=== PATIENT | female | born 1955 | race Caucasian/White ===

== ENCOUNTER 2019-05-23 03:51 | Inpatient (IN) | payer MEDICARE ==
[~2019-05-23] VITALS: Ht 162.6 cm; Wt 115.4 kg
[2019-05-23] VITALS (13 sets, daily range): BP systolic 76–169; BP diastolic 34–83
[2019-05-23 04:36] LABS: BASOPHILS % (AUTO) 0.7 % (0-1); EOSINOPHILS % (AUTO) 0.4 % (0-6); HEMATOCRIT 30.7 % (35.0-45.0); HEMOGLOBIN 10.4 g/dl (12.0-16.0); LYMPHOCYTES # (AUTO) 1.1 X10'3 (1.1-4.8); LYMPHOCYTES % (AUTO) 18.9 % (21-51); MEAN CORPUSCULAR HEMOGLOBIN 32.5 PG (27.0-31.0); MEAN CORPUSCULAR VOLUME 95.6 FL (78-98); MONOCYTES # (AUTO) 0.3 X10'3 (0-0.9); MONOCYTES % (AUTO) 4.7 % (2-12); NEUTROPHILS # (AUTO) 4.4 X10'3 (1.8-7.7); NEUTROPHILS % (AUTO) 75.3 % (42-75); PLATELET COUNT 147 X10'3 (140-440); RED BLOOD COUNT 3.22 X10'6 (4.20-5.60); RED CELL DISTRIBUTION WIDTH 15.9 % (11.5-14.5); WHITE BLOOD COUNT 5.9 X10'3 (4.5-11.0)
[2019-05-23 04:51] LABS: ALANINE AMINOTRANSFERASE 27 U/L (12-78); ALBUMIN 2.4 G/DL (3.4-5.0); ALBUMIN/GLOBULIN RATIO 0.6 (1.1-1.5); ALKALINE PHOSPHATASE 104 IU/L (46-116); ANION GAP 11 (8-16); ASPARTATE AMINO TRANSFERASE 25 U/L (10-37); BILIRUBIN,TOTAL 0.9 MG/DL (0.1-1.0); BLOOD UREA NITROGEN 19 MG/DL (7-18); BUN/CREATININE RATIO 22.1 (6.6-38.0); CALCIUM 7.7 MG/DL (8.5-10.1); CHLORIDE 109 MMOL/L (99-107); CREATININE 0.86 MG/DL (0.40-0.90); GLUCOSE 124 MG/DL (70-104); POTASSIUM 4.8 MMOL/L (3.5-5.1); SODIUM 140 MMOL/L (135-145); TOTAL CARBON DIOXIDE 20.3 MMOL/L (24-32); TOTAL PROTEIN 6.2 G/DL (6.4-8.2); eGFR 66 ML/MIN
--- NOTE | 2019-05-23 04:55 | NUR ---
BLOOD ON PT'S UNDERPANTS NOTED AND WHEN SHE WIPED AFTER URINATING. BLOOD APPEARS TO BE COMING FROM RECTUM AND MAY HAVE CONTAMINATED UA SAMPLE. PRIMARY RN NOTIFIED.
[2019-05-23 05:01] LABS: URINE HCG NEGATIVE (NEG)
[2019-05-23 05:03] LABS: CLARITY,URINE CLEAR (Clear); COLOR,URINE YELLOW (Yellow); GLUCOSE, URINE NEGATIVE (Neg); KETONES,URINE 15 mg/dl (Neg); LEUKOCYTE ESTERASE ,URINE NEGATIVE (Neg); NITRITES, URINE NEGATIVE (Neg); OCCULT BLOOD,URINE LARGE (Neg); PROTEIN,URINE NEGATIVE (Neg); UROBILINOGEN,URINE 0.2 E.U/dL (0.2-1.0)
[2019-05-23 05:23] LABS: UA COLLECTION TYPE VOIDED
[2019-05-23] MEDS ORDERED: magnesium hydroxide 30ml (MOM) UD suspension PO PRN (05:30)
[2019-05-23] MEDS ORDERED: dextrose 5%-1/2 normal saline 1,000 ML IV SCH (05:30)
[2019-05-23] MEDS ORDERED: morphine 2 MG/ML inj. syringe IV PRN ×2 (05:30)
[2019-05-23] MEDS ORDERED: mag hydrox/Alum hydrox/simeth 30ml oral suspension PO PRN (05:30)
[2019-05-23] MEDS ORDERED: acetaminophen 325mg tablet PO PRN ×2 (05:30)
[2019-05-23 05:38] LABS: RBC,URINE 0-2 /HPF (0-2); WBC,URINE 0-4 /HPF (0-4)
[2019-05-23 05:39] LABS: BACTERIA,URINE FEW /HPF (Neg); MUCUS STRANDS NONE SEEN /LPF (Neg); SQUAMOUS EPITHELIAL CELL,UR FEW /LPF (FEW)
[2019-05-23] MEDS ORDERED: OMEP-50 PO (07:08)
[2019-05-23] MEDS ORDERED: LISI40TA4 PO (07:08)
[2019-05-23] MEDS: octreotide inj. 1,250 MCG in normal saline 250ml IV soln 243.75 ML IV SCH (07:35)
[2019-05-23] MEDS ORDERED: epiNEPHrine 0.1mg/ml 10ml syringe ONE (08:00)
[2019-05-23] MEDS ORDERED: calcium chloride 100 MG/1 ML inj IV ONE (08:00)
[2019-05-23] MEDS ORDERED: NORepinephrine bitartrate 8 MG in NS 250 ML BAG (32 mcg/ml) IV ONE (08:00)
[2019-05-23] MEDS ORDERED: sod chloride 0.9% 10ml flush syringe IV ONE (08:00)
--- NOTE | 2019-05-23 08:06 | NUR ---
FIRST CALL TO PCU TO GIVE REPORT, NURSE IS BUSY, HE WILL CALL ME BACK IN 5"
--- NOTE | 2019-05-23 08:15 | NUR ---
Patient in room PCU 3012. I have received report from Feliciano PEDERSON and had the opportunity to ask questions and assume patient care.
--- NOTE | 2019-05-23 08:43 | NUR ---
Pt. arrived from ER. Pt. is complaining of nausea. Pt. helped to bathroom. Pt. placed on tele. Pt's left sided PIV is working and medication running.
[2019-05-23] MEDS: ondansetron/PF 4mg/2ml inj IV PRN ×2 (08:54→17:24)
[2019-05-23 12:54] LABS: BASOPHILS # (AUTO) 0.1 X10'3 (0-0.2); BASOPHILS % (AUTO) 0.6 % (0-1); EOSINOPHILS % (AUTO) 0.2 % (0-6); HEMATOCRIT 28.4 % (35.0-45.0); HEMOGLOBIN 9.6 g/dl (12.0-16.0); LYMPHOCYTES # (AUTO) 6.3 X10'3 (1.1-4.8); LYMPHOCYTES % (AUTO) 45.4 % (21-51); MEAN CORPUSCULAR HEMOGLOBIN 32.6 PG (27.0-31.0); MEAN CORPUSCULAR HGB CONC 33.7 g/dL (33.0-36.5); MEAN CORPUSCULAR VOLUME 96.7 FL (78-98); MEAN PLATELET VOLUME 8.2 FL (7.4-10.4); MONOCYTES # (AUTO) 0.7 X10'3 (0-0.9); MONOCYTES % (AUTO) 5.2 % (2-12); NEUTROPHILS # (AUTO) 6.7 X10'3 (1.8-7.7); NEUTROPHILS % (AUTO) 48.6 % (42-75); PLATELET COUNT 208 X10'3 (140-440); RED BLOOD COUNT 2.94 X10'6 (4.20-5.60); RED CELL DISTRIBUTION WIDTH 15.9 % (11.5-14.5); WHITE BLOOD COUNT 13.8 X10'3 (4.5-11.0)
--- NOTE | 2019-05-23 13:00 | NUR ---
The pt. pushed her call light after waking up from a nap and told me she was nauseated and asked if I could help her to the bathroom. The pt. was able to ambulate to the bathroom with no problems and helped to the toilet. I told her I would go and check to see if her antinausea medication was due. While I was gone she pulled the bathroom light and asked if I could also get her some pain medication because her abdomen was starting to hurt again. While I was pulling her medications I heard her bathroom light go off again. When I got to the bathroom she stated "I don't feel good" and was leaning forward on her IV pole. I got to her as she was leaning forward and laid her down on the floor and called for help. There was a large bloody bowl movement in the toilet as well as bloody vomit in the trash can. We called a rapid. We took vitals, krishan blood, placed the patient on a sheet and moved her out of the bathroom so we could use the Pedro lift to place her back in bed. We gave her a 1L bolus of NS and started the 2nd bag. We then transferred the pt. down to ICU per Dr. Wetzel and transferred care over to the ICU staff.
[2019-05-23 13:05] LABS: ALANINE AMINOTRANSFERASE 26 U/L (12-78); ALBUMIN 2.2 G/DL (3.4-5.0); ALBUMIN/GLOBULIN RATIO 0.6 (1.1-1.5); ALKALINE PHOSPHATASE 98 IU/L (46-116); ANION GAP 10 (8-16); ASPARTATE AMINO TRANSFERASE 24 U/L (10-37); BILIRUBIN,TOTAL 0.8 MG/DL (0.1-1.0); BLOOD UREA NITROGEN 22 MG/DL (7-18); CHLORIDE 111 MMOL/L (99-107); GLUCOSE 199 MG/DL (70-104); SODIUM 139 MMOL/L (135-145); TOTAL CARBON DIOXIDE 17.6 MMOL/L (24-32); TOTAL PROTEIN 5.8 G/DL (6.4-8.2); eGFR 50 ML/MIN
--- NOTE | 2019-05-23 13:30 | NUR ---
Patient arrived via gurney as rapid response. Reportedly vomiting bright red and diarrhea maroon blood. Patient is in and out of being appropriate answering questions. She reports she has not been taking her anti-ulcer medication the past two months because she felt she didn't need it. Blood will be transfused. EGD planned for today. Hypotensive, 500ml of Normal Saline given per Dr. Wetzel order. Dr. Wetzel at bedside for patient arrival.
[2019-05-23] MEDS ORDERED: pantoprazole 40 MG vial IV ONE ×2 (13:40→13:45)
[2019-05-23] MEDS ORDERED: ESOMEPRAZOLE 40 MG VIAL IV ONE (13:50)
[2019-05-23] MEDS ORDERED: normal saline 1000ml 1,000 ML IV ONE (13:55)
[2019-05-23] MEDS ORDERED: pantoprazole 40MG/NS 100ML BAG 100 ML IV SCH (14:00)
[2019-05-23] MEDS ORDERED: OMEP20TA23 PO (14:01)
[2019-05-23] MEDS ORDERED: fentaNYL/PF 50MCG/1 ML 2ML syringe ONE ×2 (15:45→15:47)
[2019-05-23] MEDS ORDERED: LIDOcaine Viscous 15ml cup ONE (15:46)
[2019-05-23] MEDS ORDERED: MIDAZolam 5mg/5ml vial ONE (15:46)
[2019-05-23] MEDS: NORepinephrine 8mg/ 250ml NS 250 ML IV SCH (17:56)
[2019-05-23] MEDS ORDERED: midazolam 100mg in NS 100ml 100 ML IV PRN (18:00)
[2019-05-23 18:03] LABS: BASOPHILS # (AUTO) 0.1 X10'3 (0-0.2); BASOPHILS % (AUTO) 0.5 % (0-1); EOSINOPHILS % (AUTO) 0.2 % (0-6); LYMPHOCYTES # (AUTO) 4.5 X10'3 (1.1-4.8); LYMPHOCYTES % (AUTO) 26.4 % (21-51); MEAN CORPUSCULAR HEMOGLOBIN 30.2 PG (27.0-31.0); MEAN CORPUSCULAR HGB CONC 32.5 g/dL (33.0-36.5); MEAN CORPUSCULAR VOLUME 92.8 FL (78-98); MEAN PLATELET VOLUME 7.9 FL (7.4-10.4); MONOCYTES # (AUTO) 0.9 X10'3 (0-0.9); MONOCYTES % (AUTO) 5.4 % (2-12); NEUTROPHILS # (AUTO) 11.4 X10'3 (1.8-7.7); NEUTROPHILS % (AUTO) 67.5 % (42-75); PLATELET COUNT 139 X10'3 (140-440); RED BLOOD COUNT 1.61 X10'6 (4.20-5.60); RED CELL DISTRIBUTION WIDTH 17.8 % (11.5-14.5); WHITE BLOOD COUNT 16.9 X10'3 (4.5-11.0)
[2019-05-23 18:06] LABS: HEMATOCRIT 14.9 % (35.0-45.0); HEMOGLOBIN 4.9 g/dl (12.0-16.0)
[2019-05-23] MEDS ORDERED: midazolam 2 mg/2 ml injection IV PRN (18:10)
[2019-05-23] MEDS ORDERED: heparin 1,000 UNITS/NS 500ml 500 ML ICATH ONE (18:10)
[2019-05-23] MEDS ORDERED: fentaNYL/PF 50MCG/1 ML 2ML syringe IV PRN (18:10)
[2019-05-23] MEDS ORDERED: LIDOcaine 1% 30ml preserv. free vial SQ ONE (18:10)
[2019-05-23 18:11] LABS: PARTIAL THROMBOPLASTIN TIME 49 SECONDS (22-32)
[2019-05-23 18:11] LABS: ABG BASE EXCESS -13.8 mmol/L (-2.0-3.0); ABG HCO3 13.8 mmol/L (22.0-26.0); ABG OXYGEN SATURATION 95.6 % (95-98); ABG PCO2 (T) 39.9 mmHg (35.0-45.0); ABG PH (T) 7.157 (7.350-7.450); ABG PO2 (T) 104.6 mmHg (83-108); FCOHb 0.3 % (0.5-1.5); FMetHb 0.2 % (0.3-1.12); FO2Hb 95.1 % (94-100); MINUTE VOLUME 17 L/min; PEEP 5 cm H2O; RESPIRATORY RATE 18 b/min; RESPIRATORY RATE (OBSERVED) 32 b/min; TIDAL VOLUME 450 mL; TOTAL HEMOGLOBIN 6.8 G/dl (12.0-16.0)
[2019-05-23] MEDS ORDERED: LIDOcaine 1%/PF 5ML 10 MG/ML VIAL ONE (18:19)
[2019-05-23] MEDS ORDERED: iohexol 300mg/ml 100ml inj. ONE (18:20)
[2019-05-23] MEDS ORDERED: heparin 1,000 UNITS/NS 500ml 500 ML ONE (18:31)
[2019-05-23] MEDS ORDERED: phytonadione inj. 10 MG in normal saline 100ml IV soln 99 ML IV STA (18:34)
[2019-05-23] MEDS ORDERED: desmopressin inj. 20 MCG in normal saline 100ml IV soln 95 ML IV ONE (18:35)
[2019-05-23] MEDS ORDERED: estrogens, conjugated 25mg inj IV ONE (18:35)
--- NOTE | 2019-05-23 18:44 | NUR ---
During EGD patient duodenal esophageal artery ruptured. Dr. Gates stopped procedure and consulted Dr. Wetzel via phone. Patient vomitted bright red blood in approx amount of 1 liter and stooled marroon stool in approx excess 1 liter. Patient intubated, arterial line placed to left groin. , Don contacted and updated. Angio came to retrieve patient. 5th unit of PRBC hung, sent 2 non-spiked units as well as 2FFP sent un-spiked. Patient tachycardic, 170's. Dr. Cardenas and Rashard at bedside when left patient in Angio. Report given to Harriet Paulino and Miranda Batres RN. Addendum: 05/24/19 at 1327 by Rossy Cotton RN In regards to note from 05/23/19. After conferring with coworkers, it was concluded that 3 units of PRBC's were given while in ICU and 4th PRBC unit was hung by myself while rolling patient in bed down to Angio suite on first floor. Two ices chests given and detailed instructions given to Aditya Garcia RN of [facility] and left 2 units of PRBC in one ice chest and 2 FFP in other ice chest. Due to emergent nature of situation and no access to computer, 4th unit hung while in elevator, after direction received by Dr. Wetzel is when 4th unit was hung.
[2019-05-23] MEDS ORDERED: etomidate 2mg/ml inj. IV ONE (19:10)
[2019-05-23] MEDS ORDERED: calcium chloride 100 MG/1 ML inj IV PRN (19:35)
[2019-05-23] MEDS ORDERED: vasoPRESSIN 20 units/ml inj. ONE (19:37)
--- NOTE | 2019-05-23 19:56 | NUR ---
Patient emergently brought to [facility]io for GI bleed, pt had significant drop in H&H and has been started on Levophed. Pt vitals showed significant unstablity. Pt immediately transferred to table and prepped and draped. Dr. Wetzel placed subclavian line in left chest. Multiple units of PRBCs given, [address] Leon gained left arterial access in LFA with contrast injection. Pt closely monitored during procedure with arterial line and on ventilator at 100% FIO2. Vasopressin and DDAVP started. Embolization performed with coils X3. Fluoro images obtained with successful embolization and no further mesenteric bleeding. 16 FR NG tube placed per Angio RN with copious amount of blood after suction applied. Pt brought back to CICU 2008, report given to primary RN.
[2019-05-23] MEDS: piperacillin/tazo 3.375gm/50ml 50 ML IV SCH (20:03)
[2019-05-23] MEDS ORDERED: sodium bicarbonate (8.4%) 1 mEq/ml syringe IV ONE (20:05)
[2019-05-23] MEDS: vasopressin inj. 20 UNIT in normal saline 100ml IV soln 39 ML IV SCH (20:28)
[2019-05-23 20:29] LABS: BASOPHILS # (AUTO) 0.1 X10'3 (0-0.2); BASOPHILS % (AUTO) 0.4 % (0-1); EOSINOPHILS # (AUTO) 0.1 X10'3 (0-0.9); EOSINOPHILS % (AUTO) 0.3 % (0-6); LYMPHOCYTES # (AUTO) 3.4 X10'3 (1.1-4.8); LYMPHOCYTES % (AUTO) 13.1 % (21-51); MEAN CORPUSCULAR HEMOGLOBIN 29.6 PG (27.0-31.0); MEAN CORPUSCULAR HGB CONC 32.4 g/dL (33.0-36.5); MEAN CORPUSCULAR VOLUME 91.3 FL (78-98); MEAN PLATELET VOLUME 7.9 FL (7.4-10.4); MONOCYTES # (AUTO) 1.5 X10'3 (0-0.9); MONOCYTES % (AUTO) 5.9 % (2-12); NEUTROPHILS % (AUTO) 80.3 % (42-75); PLATELET COUNT 91 X10'3 (140-440); RED BLOOD COUNT 4.38 X10'6 (4.20-5.60); RED CELL DISTRIBUTION WIDTH 16.5 % (11.5-14.5)
[2019-05-23 20:43] LABS: ALANINE AMINOTRANSFERASE 38 U/L (12-78); ALBUMIN 1.3 G/DL (3.4-5.0); ALBUMIN/GLOBULIN RATIO 0.7 (1.1-1.5); ALKALINE PHOSPHATASE 71 IU/L (46-116); AMYLASE 34 U/L (25-115); ANION GAP 14 (8-16); ASPARTATE AMINO TRANSFERASE 63 U/L (10-37); BILIRUBIN,TOTAL 0.7 MG/DL (0.1-1.0); BLOOD UREA NITROGEN 16 MG/DL (7-18); BUN/CREATININE RATIO 15.5 (6.6-38.0); CALCIUM 7.4 MG/DL (8.5-10.1); CHLORIDE 121 MMOL/L (99-107); CREATININE 1.03 MG/DL (0.40-0.90); GLUCOSE 255 MG/DL (70-104); LIPASE 189 U/L (73-393); MAGNESIUM 1.3 MG/DL (1.5-2.4); PHOSPHORUS 6.4 MG/DL (2.3-4.5); POTASSIUM 5.2 MMOL/L (3.5-5.1); SODIUM 146 MMOL/L (135-145); TOTAL PROTEIN 3.2 G/DL (6.4-8.2); TROPONIN I 0.17 NG/ML (0.0-0.05); eGFR 54 ML/MIN
[2019-05-23 20:48] LABS: TOTAL CARBON DIOXIDE 10.9 MMOL/L (24-32)
[2019-05-23 21:00] LABS: WHITE BLOOD COUNT 26.1 X10'3 (4.5-11.0)
[2019-05-23 21:03] LABS: TOTAL CELLS COUNTED 100
[2019-05-23 21:04] LABS: ANISOCYTOSIS 1+; LARGE PLATELETS FEW; PLATELET ESTIMATE DECREASED; POLYCHROMASIA FEW
[2019-05-23 21:06] LABS: PLATELET COUNT 91 X10'3 (140-440)
[2019-05-23 21:21] LABS: LACTIC SEPSIS 9.2 MMOL/L (0.4-2.0)
[2019-05-23 21:27] LABS: D-DIMER 15.72 MG/L FEU (0-0.50); PARTIAL THROMBOPLASTIN TIME 56 SECONDS (22-32)
[2019-05-23] MEDS: sodium bicarbonate (8.4%) inj. 75 MEQ in dextrose 5% water 500ml 500 ML IV SCH (22:19)
[2019-05-23] MEDS: ipratropium/albuterol 3ml nebule NEB SCH (23:10)
[2019-05-24] VITALS (32 sets, daily range): BP systolic 89–135; BP diastolic 42–67
[2019-05-24] MEDS ORDERED: midodrine tablet 2.5 MG TABLET PO SCH
--- NOTE | 2019-05-24 00:30 | NUR ---
Per pharmacy, with approval from Medardo Tapia, 05/24 0000 Zosyn dose held due to late completion of previous dose.
[2019-05-24 00:35] LABS: HEMATOCRIT 45.2 % (35.0-45.0); HEMOGLOBIN 14.7 g/dl (12.0-16.0); MEAN CORPUSCULAR HEMOGLOBIN 28.9 PG (27.0-31.0); MEAN CORPUSCULAR HGB CONC 32.6 g/dL (33.0-36.5); MEAN CORPUSCULAR VOLUME 88.7 FL (78-98); MEAN PLATELET VOLUME 7.7 FL (7.4-10.4); PLATELET COUNT 117 X10'3 (140-440); RED BLOOD COUNT 5.09 X10'6 (4.20-5.60); RED CELL DISTRIBUTION WIDTH 16.3 % (11.5-14.5)
[2019-05-24 00:38] LABS: WHITE BLOOD COUNT 37.1 X10'3 (4.5-11.0)
--- NOTE | 2019-05-24 00:45 | NUR ---
Notified ADELINA Marquez of bllod output from NG tube, received orders to still give Midodrine PO dose as ordered.
[2019-05-24 00:46] LABS: PLATELET COUNT 117 X10'3 (140-440)
[2019-05-24] MEDS: pantoprazole 40MG/NS 100ML BAG 100 ML IV SCH ×5 (01:02→20:16)
[2019-05-24 01:05] LABS: D-DIMER 24.59 MG/L FEU (0-0.50); PARTIAL THROMBOPLASTIN TIME 48 SECONDS (22-32)
[2019-05-24] MEDS: NORepinephrine 8mg/ 250ml NS 250 ML IV SCH ×2 (02:19→08:57)
[2019-05-24 03:46] LABS: BASOPHILS # (AUTO) 0.1 X10'3 (0-0.2); BASOPHILS % (AUTO) 0.3 % (0-1); EOSINOPHILS % (AUTO) 0.1 % (0-6); HEMATOCRIT 45.3 % (35.0-45.0); HEMOGLOBIN 14.7 g/dl (12.0-16.0); LYMPHOCYTES # (AUTO) 4.6 X10'3 (1.1-4.8); LYMPHOCYTES % (AUTO) 12.2 % (21-51); MEAN CORPUSCULAR HEMOGLOBIN 28.7 PG (27.0-31.0); MEAN CORPUSCULAR HGB CONC 32.5 g/dL (33.0-36.5); MEAN CORPUSCULAR VOLUME 88.3 FL (78-98); MEAN PLATELET VOLUME 7.8 FL (7.4-10.4); MONOCYTES # (AUTO) 2.4 X10'3 (0-0.9); MONOCYTES % (AUTO) 6.3 % (2-12); NEUTROPHILS # (AUTO) 30.5 X10'3 (1.8-7.7); NEUTROPHILS % (AUTO) 81.1 % (42-75); PLATELET COUNT 120 X10'3 (140-440); RED BLOOD COUNT 5.13 X10'6 (4.20-5.60); RED CELL DISTRIBUTION WIDTH 16.8 % (11.5-14.5)
[2019-05-24] MEDS: ipratropium/albuterol 3ml nebule NEB SCH ×6 (03:47→23:05)
[2019-05-24 03:51] LABS: WHITE BLOOD COUNT 37.6 X10'3 (4.5-11.0)
[2019-05-24 03:52] LABS: ALBUMIN 1.7 G/DL (3.4-5.0); ANION GAP 18 (8-16); BLOOD UREA NITROGEN 18 MG/DL (7-18); BUN/CREATININE RATIO 10.4 (6.6-38.0); CALCIUM 8.1 MG/DL (8.5-10.1); CHLORIDE 119 MMOL/L (99-107); CREATININE 1.73 MG/DL (0.40-0.90); GLUCOSE 146 MG/DL (70-104); SODIUM 146 MMOL/L (135-145); eGFR 30 ML/MIN
[2019-05-24 03:54] LABS: TOTAL CARBON DIOXIDE 8.9 MMOL/L (24-32)
[2019-05-24 03:58] LABS: PLATELET COUNT 120 X10'3 (140-440)
[2019-05-24] MEDS ORDERED: midodrine 5mg tablet PO SCH (04:06)
[2019-05-24 04:08] LABS: ANISOCYTOSIS 1+; D-DIMER 25.29 MG/L FEU (0-0.50); PARTIAL THROMBOPLASTIN TIME 51 SECONDS (22-32); TOTAL CELLS COUNTED 100
[2019-05-24 04:09] LABS: LARGE PLATELETS FEW; PLATELET ESTIMATE DECREASED
[2019-05-24 04:31] LABS: ABG BASE EXCESS -19.6 mmol/L (-2.0-3.0); ABG OXYGEN SATURATION 99.4 % (95-98); ABG PCO2 (T) 28.3 mmHg (35.0-45.0); ABG PO2 (T) 336.1 mmHg (83-108); FMetHb 0.1 % (0.3-1.12); FO2Hb 99.3 % (94-100); MINUTE VOLUME 17 L/min; PATIENT TEMPERATURE 35.4; RESPIRATORY RATE 18 b/min; RESPIRATORY RATE (OBSERVED) 33 b/min; TIDAL VOLUME 450 mL; TOTAL HEMOGLOBIN 14.4 G/dl (12.0-16.0)
[2019-05-24 04:52] LABS: ALANINE AMINOTRANSFERASE 178 U/L (12-78); ALBUMIN/GLOBULIN RATIO 0.7 (1.1-1.5); ALKALINE PHOSPHATASE 87 IU/L (46-116); ASPARTATE AMINO TRANSFERASE 328 U/L (10-37); BILIRUBIN,TOTAL 1.5 MG/DL (0.1-1.0); MAGNESIUM 1.4 MG/DL (1.5-2.4); PHOSPHORUS 5.8 MG/DL (2.3-4.5)
[2019-05-24] MEDS: sodium bicarbonate (8.4%) inj. 75 MEQ in dextrose 5% water 500ml 500 ML IV SCH (05:27)
[2019-05-24] MEDS: vasopressin inj. 20 UNIT in normal saline 100ml IV soln 39 ML IV SCH (05:27)
[2019-05-24] MEDS ORDERED: sodium chloride 0.45% 1,000 ML IV ONE (05:50)
[2019-05-24] MEDS ORDERED: phytonadione inj. 10 MG in normal saline 100ml IV soln 99 ML IV ONE ×2 (06:30→16:50)
--- NOTE | 2019-05-24 06:30 | NUR ---
Patient in room CICU 2008. I have received report from Harriet Paulino and Miranda Batres RN's and had the opportunity to ask questions and assume patient care.
[2019-05-24 06:33] LABS: ABG BASE EXCESS -18.3 mmol/L (-2.0-3.0); ABG HCO3 11.1 mmol/L (22.0-26.0); ABG OXYGEN SATURATION 99.5 % (95-98); ABG PCO2 (T) 34.9 mmHg (35.0-45.0); ABG PH (T) 7.103 (7.350-7.450); FCOHb 0.3 % (0.5-1.5); FMetHb 0.3 % (0.3-1.12); FO2Hb 98.9 % (94-100); MINUTE VOLUME 17 L/min; PATIENT TEMPERATURE 34.5; PEEP 5 cm H2O; RESPIRATORY RATE 18 b/min; RESPIRATORY RATE (OBSERVED) 32 b/min; TIDAL VOLUME 450 mL; TOTAL HEMOGLOBIN 13.9 G/dl (12.0-16.0)
[2019-05-24 06:36] LABS: ABG PO2 (T) > 600.0 mmHg (83-108)
[2019-05-24] MEDS ORDERED: albumin (human) 25% 100 ML IV solution IV ONE (06:50)
[2019-05-24] MEDS: sodium bicarbonate (8.4%) inj. 100 MEQ in dextrose 5%-water 1,000 ML IV SCH ×4 (07:15→19:37)
[2019-05-24] MEDS ORDERED: dextrose 50%-water 50ml dispensing syringe IV PRN ×2 (07:55)
[2019-05-24] MEDS ORDERED: MESSAGE TO PHARMACY PO ONE (07:55)
[2019-05-24] MEDS ORDERED: dextrose ORAL solution 15 GM/59 ML bottle PO PRN ×2 (07:55)
[2019-05-24] MEDS ORDERED: glucagon, human recombinant 1mg kit SUBCUT PRN (07:55)
[2019-05-24 08:11] LABS: HEPATITIS C ANTIBODY <0.1 s/co ratio (0.0-0.9)
[2019-05-24 08:31] LABS: CREATINE KINASE 143 U/L (26-192)
[2019-05-24 08:50] LABS: MAGNESIUM 1.2 MG/DL (1.5-2.4); PHOSPHORUS 4.1 MG/DL (2.3-4.5)
[2019-05-24 08:52] LABS: HEMOGLOBIN A1C 5.4 % (4.5-6.2)
[2019-05-24] MEDS: hydrocortisone sod succ/PF 100mg/2ml inj. IV SCH ×3 (08:52→19:36)
[2019-05-24 08:55] LABS: BASOPHILS # (AUTO) 0.1 X10'3 (0-0.2); BASOPHILS % (AUTO) 0.2 % (0-1); EOSINOPHILS % (AUTO) 0.1 % (0-6); HEMATOCRIT 40.2 % (35.0-45.0); HEMOGLOBIN 13.2 g/dl (12.0-16.0); LYMPHOCYTES # (AUTO) 4.1 X10'3 (1.1-4.8); MEAN CORPUSCULAR HEMOGLOBIN 28.8 PG (27.0-31.0); MEAN CORPUSCULAR HGB CONC 32.8 g/dL (33.0-36.5); MEAN CORPUSCULAR VOLUME 87.6 FL (78-98); MEAN PLATELET VOLUME 8.1 FL (7.4-10.4); MONOCYTES % (AUTO) 8.1 % (2-12); NEUTROPHILS % (AUTO) 80.6 % (42-75); PLATELET COUNT 97 X10'3 (140-440); RED BLOOD COUNT 4.58 X10'6 (4.20-5.60); RED CELL DISTRIBUTION WIDTH 16.9 % (11.5-14.5)
[2019-05-24] MEDS: piperacillin/tazo 3.375gm/50ml 50 ML IV SCH ×3 (08:57→19:36)
[2019-05-24 09:00] LABS: ALANINE AMINOTRANSFERASE 268 U/L (12-78); ALBUMIN 1.4 G/DL (3.4-5.0); ALBUMIN/GLOBULIN RATIO 0.7 (1.1-1.5); ALKALINE PHOSPHATASE 73 IU/L (46-116); ANION GAP 13 (8-16); ASPARTATE AMINO TRANSFERASE 545 U/L (10-37); BILIRUBIN,TOTAL 1.5 MG/DL (0.1-1.0); BLOOD UREA NITROGEN 17 MG/DL (7-18); BUN/CREATININE RATIO 8.9 (6.6-38.0); CALCIUM 7.1 MG/DL (8.5-10.1); CHLORIDE 112 MMOL/L (99-107); GLUCOSE 412 MG/DL (70-104); POTASSIUM 4.2 MMOL/L (3.5-5.1); SODIUM 146 MMOL/L (135-145); TOTAL CARBON DIOXIDE 21.2 MMOL/L (24-32); TOTAL PROTEIN 3.3 G/DL (6.4-8.2); eGFR 27 ML/MIN
[2019-05-24 09:04] LABS: WHITE BLOOD COUNT 37.2 X10'3 (4.5-11.0)
[2019-05-24 09:21] LABS: OXYGEN SATURATION (MIXED VEN) 79.5 % (60-80); PO2 MIXED VENOUS (TEMP COR) 41.4 mmHg (35-46)
--- NOTE | 2019-05-24 09:30 | NUR ---
Updated Dr. Wetzel and multidisciplinary team during Critical Care Rounds. Dr. Wetzel made aware that Radiologist, Dr. Dominique called and said that ET tube "was a little on low side". Dr. Wetzel said to leave ETT where it is. He does not want tube feeding started at this time. He is thinking about possible CVVH in future. He requests a urine to be sent for spot creatinine and sodium. Up to date on patient situation.
[2019-05-24] MEDS: insulin Lispro (HumaLOG) vial - multi-dose SQ SCH ×3 (09:46→20:15)
--- NOTE | 2019-05-24 10:30 | NUR ---
Dr. Trejo office called said that Dr. Trejo will be by some time today to evaluate patient.
--- NOTE | 2019-05-24 11:30 | NUR ---
Updated patient's son in law, Gustavo, educated on the need to have one person to inform the rest of the family. Also discussed the need for power of estate attorney paperwork that he states he has.
--- NOTE | 2019-05-24 11:31 | NUR ---
Brother of patient, Jas informed to reach out to son in law, Gustavo.
--- NOTE | 2019-05-24 11:49 | NUR ---
Updated, stated , Don. THen educated regarding one spokesperson to receive information and funnel to rest of family.
--- NOTE | 2019-05-24 12:16 | NUR ---
Mehul trigger: Pt Mehul 11 w/ skin intact. Pt intubated s/p rapid response found to have large GIB receiving 9 units of blood per MD; lost lots of clotting factors along w/ ALB since essentially total blood transfusion yesterday per MD. S/p mesenteric angiogram w/ embolization of gastroduodenal artery; no hematoma present per MD note. Per MD hyperchloremic acidosis DX in addition to potential for ischemic bowel pending GI surgeon consult. To remain NPO at this time and potential for TF tomorrow if GI clears per MD at rounds. Pt CT shows moderate fluid in peritoneum, possible ascending and proximal transverse colon colitis, enlarged spleen, and cirrhotic liver per MD at rounds. Pt has no hx etoh or liver disease. GLU 412 started on insulin drip w/ no hx DM on steroids. Will monitor for GI results; EN recs below pending MD approval. Rec: 1. IF NGTF; Vital High Protein at 85ml/hr goal; to provide 2040ml fluid, 1714ml free water, 2040kcals, and 179g protein. Initiate at 20ml/hr and advance 20ml Q8 to goal as tolerated. 2. IF TF; water flush 200ml Q6 3. IF TF; prealbumin Q /, daily wts 4. monitor for GI results to determine optimal nutrition support route Addendum: 05/24/19 at [address] Amended: Links added.
[2019-05-24 12:18] LABS: D-DIMER 9.63 MG/L FEU (0-0.50); PARTIAL THROMBOPLASTIN TIME 58 SECONDS (22-32); PLATELET COUNT 97 X10'3 (140-440)
[2019-05-24 12:55] LABS: HEMATOCRIT 29.3 % (35.0-45.0); MEAN CORPUSCULAR HEMOGLOBIN 29.5 PG (27.0-31.0); MEAN CORPUSCULAR HGB CONC 34.1 g/dL (33.0-36.5); MEAN CORPUSCULAR VOLUME 86.5 FL (78-98); MEAN PLATELET VOLUME 8.8 FL (7.4-10.4); PLATELET COUNT 58 X10'3 (140-440); RED BLOOD COUNT 3.39 X10'6 (4.20-5.60); RED CELL DISTRIBUTION WIDTH 16.9 % (11.5-14.5)
--- NOTE | 2019-05-24 14:04 | NUR ---
Left a message on Dr. Wetzel cell phone regarding patient decrease in H/H and platelets.
--- NOTE | 2019-05-24 14:14 | NUR ---
Wound care at bedside, showed areas of concern to gluteal fissure, skin tears. Barrier spray applied and then calazime. WIll continue to monitor.
--- NOTE | 2019-05-24 14:15 | NUR ---
Updated Dr. Wetzel regarding drop in hemogram results as well as platelets. He is not concerned at this point, but keep monitoring. Changing hemogram and lactic acid levels to q6h and adding TSH and T4. Addendum: 05/24/19 at 1425 by Rossy Cotton RN Dr. Wetzel is aware of LA trending down at 7. Wants me to check with IR to see when they will be removing the left groin sheath.
[2019-05-24] MEDS ORDERED: VANCOmycin 1250MG/NS 250ml Bag 250 ML IV SCH (15:00)
[2019-05-24 15:56] LABS: TOTAL CELLS COUNTED 100
[2019-05-24 15:57] LABS: ANISOCYTOSIS 1+; BURR CELLS 1+; PLATELET ESTIMATE DECREASED
[2019-05-24 18:26] LABS: HEMATOCRIT 26.2 % (35.0-45.0); MEAN CORPUSCULAR HEMOGLOBIN 29.2 PG (27.0-31.0); MEAN CORPUSCULAR HGB CONC 34.3 g/dL (33.0-36.5); MEAN CORPUSCULAR VOLUME 85.2 FL (78-98); RED BLOOD COUNT 3.08 X10'6 (4.20-5.60); RED CELL DISTRIBUTION WIDTH 17.1 % (11.5-14.5); WHITE BLOOD COUNT 16.5 X10'3 (4.5-11.0)
--- NOTE | 2019-05-24 18:27 | NUR ---
Problems reprioritized. Patient report given, questions answered & plan of care reviewed with Miranda Batres RN.
--- NOTE | 2019-05-24 18:30 | NUR ---
Patient in room CICU 2008. I have received report from BG Blair and had the opportunity to ask questions and assume patient care.
[2019-05-24 18:59] LABS: PLATELET COUNT 38 X10'3 (140-440)
[2019-05-24] MEDS: octreotide inj. 1,250 MCG in normal saline 250ml IV soln 243.75 ML IV SCH (19:35)
[2019-05-24] MEDS: insulin glargine (Lantus) pen - multi-dose SQ SCH (20:16)
[2019-05-24 23:31] LABS: ABG BASE EXCESS 0.1 mmol/L (-2.0-3.0); ABG HCO3 24.3 mmol/L (22.0-26.0); ABG OXYGEN SATURATION 97.6 % (95-98); ABG PCO2 (T) 37.5 mmHg (35.0-45.0); ABG PH (T) 7.429 (7.350-7.450); ABG PO2 (T) 117.5 mmHg (83-108); FCOHb 0.2 % (0.5-1.5); FMetHb 0.3 % (0.3-1.12); FO2Hb 97.1 % (94-100); MINUTE VOLUME 12 L/min; PEEP 5 cm H2O; RESPIRATORY RATE 18 b/min; RESPIRATORY RATE (OBSERVED) 22 b/min; TIDAL VOLUME 450 mL; TOTAL HEMOGLOBIN 8.8 G/dl (12.0-16.0)
[2019-05-25] VITALS (27 sets, daily range): BP systolic 100–142; BP diastolic 59–73
[2019-05-25] MEDS: pantoprazole 40MG/NS 100ML BAG 100 ML IV SCH ×5 (00:22→22:02)
[2019-05-25] MEDS: sodium bicarbonate (8.4%) inj. 100 MEQ in dextrose 5%-water 1,000 ML IV SCH ×2 (00:22→04:57)
[2019-05-25 00:37] LABS: HEMATOCRIT 23.4 % (35.0-45.0); HEMOGLOBIN 8.2 g/dl (12.0-16.0); MEAN CORPUSCULAR HEMOGLOBIN 29.2 PG (27.0-31.0); MEAN CORPUSCULAR HGB CONC 34.9 g/dL (33.0-36.5); MEAN CORPUSCULAR VOLUME 83.7 FL (78-98); MEAN PLATELET VOLUME 7.8 FL (7.4-10.4); PLATELET COUNT 54 X10'3 (140-440); RED CELL DISTRIBUTION WIDTH 17.2 % (11.5-14.5); WHITE BLOOD COUNT 11.9 X10'3 (4.5-11.0)
[2019-05-25 00:41] LABS: LYMPHOCYTES % (AUTO) 8.4 % (21-51); NEUTROPHILS % (AUTO) 86.8 % (42-75)
[2019-05-25 00:42] LABS: BASOPHILS % (AUTO) 0.2 % (0-1); EOSINOPHILS % (AUTO) 0.1 % (0-6); MONOCYTES # (AUTO) 0.5 X10'3 (0-0.9); MONOCYTES % (AUTO) 4.5 % (2-12); NEUTROPHILS # (AUTO) 10.3 X10'3 (1.8-7.7)
[2019-05-25 01:10] LABS: ALBUMIN 2.2 G/DL (3.4-5.0); ALBUMIN/GLOBULIN RATIO 1.2 (1.1-1.5); ALKALINE PHOSPHATASE 118 IU/L (46-116); ANION GAP 14 (8-16); BILIRUBIN,TOTAL 1.9 MG/DL (0.1-1.0); BLOOD UREA NITROGEN 19 MG/DL (7-18); BUN/CREATININE RATIO 11.5 (6.6-38.0); CALCIUM 7.7 MG/DL (8.5-10.1); CHLORIDE 108 MMOL/L (99-107); CREATININE 1.65 MG/DL (0.40-0.90); GLUCOSE 209 MG/DL (70-104); PHOSPHORUS 2.8 MG/DL (2.3-4.5); POTASSIUM 3.2 MMOL/L (3.5-5.1); SODIUM 144 MMOL/L (135-145); TOTAL CARBON DIOXIDE 22.5 MMOL/L (24-32); VANCOMYCIN,RANDOM 10.6 UG/ML; eGFR 31 ML/MIN
[2019-05-25] MEDS: VANCOMYCIN LEVEL IV SCH (01:16)
[2019-05-25 01:27] LABS: ALANINE AMINOTRANSFERASE 2485 U/L (12-78)
[2019-05-25 01:28] LABS: ASPARTATE AMINO TRANSFERASE > 7000 U/L (10-37)
[2019-05-25] MEDS ORDERED: magnesium 2GM in 50ml NS 50 ML IV ONE (01:35)
[2019-05-25] MEDS ORDERED: potassium Cl 20mEq/100mL bag 100 ML IV ONE (01:35)
[2019-05-25 01:41] LABS: D-DIMER 11.32 MG/L FEU (0-0.50); PARTIAL THROMBOPLASTIN TIME 35 SECONDS (22-32)
[2019-05-25 01:42] LABS: PLATELET COUNT 56 X10'3 (140-440)
[2019-05-25] MEDS: vancomycin/NS 1 GM ADD-VANTAGE 250 ML IV PRN (02:08)
[2019-05-25] MEDS: hydrocortisone sod succ/PF 100mg/2ml inj. IV SCH ×4 (02:09→20:08)
[2019-05-25] MEDS: mineral oil/petrolatum ophthal oint EACHEYE SCH ×4 (02:09→20:08)
[2019-05-25] MEDS: insulin Lispro (HumaLOG) vial - multi-dose SQ SCH ×2 (02:18→08:09)
[2019-05-25] MEDS: ipratropium/albuterol 3ml nebule NEB SCH ×6 (03:13→23:17)
[2019-05-25 06:26] LABS: ALBUMIN 2.2 G/DL (3.4-5.0); ANION GAP 10 (8-16); BLOOD UREA NITROGEN 20 MG/DL (7-18); BUN/CREATININE RATIO 12.7 (6.6-38.0); CALCIUM 7.9 MG/DL (8.5-10.1); CHLORIDE 108 MMOL/L (99-107); CREATININE 1.57 MG/DL (0.40-0.90); GLUCOSE 200 MG/DL (70-104); PHOSPHORUS 2.3 MG/DL (2.3-4.5); POTASSIUM 3.3 MMOL/L (3.5-5.1); SODIUM 143 MMOL/L (135-145); TOTAL CARBON DIOXIDE 24.6 MMOL/L (24-32); eGFR 33 ML/MIN
[2019-05-25 06:33] LABS: HEMATOCRIT 26.4 % (35.0-45.0); HEMOGLOBIN 9.3 g/dl (12.0-16.0); MEAN CORPUSCULAR HEMOGLOBIN 29.6 PG (27.0-31.0); MEAN CORPUSCULAR HGB CONC 35.2 g/dL (33.0-36.5); MEAN PLATELET VOLUME 8.2 FL (7.4-10.4); PLATELET COUNT 53 X10'3 (140-440); RED BLOOD COUNT 3.15 X10'6 (4.20-5.60); RED CELL DISTRIBUTION WIDTH 16.3 % (11.5-14.5); WHITE BLOOD COUNT 12.5 X10'3 (4.5-11.0)
[2019-05-25] MEDS: piperacillin/tazo 3.375gm/50ml 50 ML IV SCH ×2 (08:06→20:08)
[2019-05-25] MEDS ORDERED: vancomycin/NS 1 GM ADD-VANTAGE 250 ML IV ONE (08:25)
--- NOTE | 2019-05-25 11:38 | NUR ---
Wound consult re: low albumin, skin breakdown, increased needs. Noted, patient has partial thickness wound to gluteal sulcus, WOC following. TF recs have been made. No consult for TF yet. Will continue to follow. Addendum: 05/25/19 at [address] Amended: Links added.
[2019-05-25] MEDS ORDERED: phytonadione inj. 10 MG in normal saline 100ml IV soln 99 ML IV ONE (12:00)
[2019-05-25] MEDS ORDERED: magnesium 2GM in 50ml NS 50 ML IV PRN (12:25)
[2019-05-25] MEDS ORDERED: potassium Cl 20 mEq SR tablet PO PRN ×2 (12:25)
[2019-05-25] MEDS ORDERED: magnesium Cl slow-release 64mg tablet PO PRN (12:25)
[2019-05-25] MEDS ORDERED: magnesium 4gm in 100ml NS 100 ML IV PRN (12:25)
[2019-05-25] MEDS: potassium Cl 20mEq/100mL bag 100 ML IV PRN ×2 (12:44→13:42)
[2019-05-25] MEDS ORDERED: acetaminophen 325mg/10.15ml oral unit dose solution NG PRN ×2 (13:07→13:08)
[2019-05-25] MEDS ORDERED: dextrose ORAL solution 15 GM/59 ML bottle NG PRN ×2 (13:08)
[2019-05-25] MEDS ORDERED: mag hydrox/Alum hydrox/simeth 30ml oral suspension NG PRN (13:12)
[2019-05-25] MEDS ORDERED: magnesium hydroxide 30ml (MOM) UD suspension NG PRN (13:13)
[2019-05-25] MEDS ORDERED: potassium Cl 20 mEq SR tablet NG PRN ×2 (13:14)
--- NOTE | 2019-05-25 14:30 | NUR ---
Restart hyperglycemic protocol on patient and place patient from a level 6 to a level 2 as tube feeding is requiring a change from Humalog to Humulin. Spoke with pharmacist Eileen who concurs with medication transition. Also, Bicarb in D5W stopped earlier.
[2019-05-25] MEDS: NORepinephrine 8mg/ 250ml NS 250 ML IV SCH (17:50)
--- NOTE | 2019-05-25 18:45 | NUR ---
Patient in room CICU 2008. I have received report from BG Gonsalez and had the opportunity to ask questions and assume patient care.
--- NOTE | 2019-05-25 18:48 | NUR ---
Problems reprioritized. Patient report given, questions answered & plan of care reviewed with Miranda PEDERSON.
[2019-05-25 19:51] LABS: HEMATOCRIT 26.9 % (35.0-45.0); HEMOGLOBIN 9.2 g/dl (12.0-16.0); MEAN CORPUSCULAR HEMOGLOBIN 29.4 PG (27.0-31.0); MEAN CORPUSCULAR HGB CONC 34.3 g/dL (33.0-36.5); MEAN CORPUSCULAR VOLUME 85.9 FL (78-98); MEAN PLATELET VOLUME 8.6 FL (7.4-10.4); PLATELET COUNT 64 X10'3 (140-440); RED BLOOD COUNT 3.13 X10'6 (4.20-5.60); RED CELL DISTRIBUTION WIDTH 16.5 % (11.5-14.5); WHITE BLOOD COUNT 17.5 X10'3 (4.5-11.0)
[2019-05-25] MEDS: insulin regular, human vial - multi-dose SQ SCH (20:13)
[2019-05-25] MEDS: insulin glargine (Lantus) pen - multi-dose SQ SCH (20:15)
[2019-05-26] VITALS (24 sets, daily range): BP systolic 100–155; BP diastolic 60–86
[2019-05-26] MEDS: hydrocortisone sod succ/PF 100mg/2ml inj. IV SCH ×4 (02:20→19:19)
[2019-05-26] MEDS: mineral oil/petrolatum ophthal oint EACHEYE SCH ×4 (02:20→19:19)
[2019-05-26] MEDS: insulin regular, human vial - multi-dose SQ SCH ×4 (02:22→20:09)
[2019-05-26 02:34] LABS: BASOPHILS % (AUTO) 0.1 % (0-1); EOSINOPHILS % (AUTO) 0 % (0-6); HEMATOCRIT 25.7 % (35.0-45.0); HEMOGLOBIN 8.7 g/dl (12.0-16.0); LYMPHOCYTES # (AUTO) 1.2 X10'3 (1.1-4.8); LYMPHOCYTES % (AUTO) 9.2 % (21-51); MEAN CORPUSCULAR HEMOGLOBIN 28.8 PG (27.0-31.0); MEAN CORPUSCULAR VOLUME 84.9 FL (78-98); MEAN PLATELET VOLUME 8.1 FL (7.4-10.4); MONOCYTES # (AUTO) 0.4 X10'3 (0-0.9); MONOCYTES % (AUTO) 3.3 % (2-12); NEUTROPHILS # (AUTO) 11.8 X10'3 (1.8-7.7); NEUTROPHILS % (AUTO) 87.4 % (42-75); PLATELET COUNT 57 X10'3 (140-440); RED BLOOD COUNT 3.02 X10'6 (4.20-5.60); RED CELL DISTRIBUTION WIDTH 16.5 % (11.5-14.5); WHITE BLOOD COUNT 13.5 X10'3 (4.5-11.0)
[2019-05-26] MEDS: VANCOMYCIN LEVEL IV SCH (03:00)
[2019-05-26] MEDS: ipratropium/albuterol 3ml nebule NEB SCH ×6 (03:01→22:32)
[2019-05-26 03:05] LABS: ALBUMIN 2.1 G/DL (3.4-5.0); ALBUMIN/GLOBULIN RATIO 1.1 (1.1-1.5); ALKALINE PHOSPHATASE 156 IU/L (46-116); ANION GAP 4 (8-16); BILIRUBIN,TOTAL 1.8 MG/DL (0.1-1.0); BLOOD UREA NITROGEN 27 MG/DL (7-18); BUN/CREATININE RATIO 18.4 (6.6-38.0); CALCIUM 7.4 MG/DL (8.5-10.1); CHLORIDE 111 MMOL/L (99-107); CREATININE 1.47 MG/DL (0.40-0.90); GLUCOSE 155 MG/DL (70-104); MAGNESIUM 2.5 MG/DL (1.5-2.4); PHOSPHORUS 3.3 MG/DL (2.3-4.5); POTASSIUM 3.9 MMOL/L (3.5-5.1); SODIUM 144 MMOL/L (135-145); TOTAL CARBON DIOXIDE 29.1 MMOL/L (24-32); VANCOMYCIN,RANDOM 9.4 UG/ML; eGFR 36 ML/MIN
[2019-05-26 03:15] LABS: ABG HCO3 29.3 mmol/L (22.0-26.0); ABG OXYGEN SATURATION 93.6 % (95-98); ABG PCO2 (T) 41.9 mmHg (35.0-45.0); ABG PH (T) 7.462 (7.350-7.450); ABG PO2 (T) 71.9 mmHg (83-108); FCOHb 0.2 % (0.5-1.5); FMetHb 0.8 % (0.3-1.12); FO2Hb 92.7 % (94-100); MINUTE VOLUME 7 L/min; PATIENT TEMPERATURE 36.8; PEEP 5 cm H2O; RESPIRATORY RATE 12 b/min; RESPIRATORY RATE (OBSERVED) 12 b/min; TIDAL VOLUME 450 mL; TOTAL HEMOGLOBIN 9.6 G/dl (12.0-16.0)
[2019-05-26] MEDS: vancomycin/NS 1 GM ADD-VANTAGE 250 ML IV PRN (03:15)
[2019-05-26] MEDS: pantoprazole 40MG/NS 100ML BAG 100 ML IV SCH ×5 (03:15→20:06)
[2019-05-26 03:27] LABS: ALANINE AMINOTRANSFERASE 2427 U/L (12-78); ASPARTATE AMINO TRANSFERASE 3522 U/L (10-37)
--- NOTE | 2019-05-26 06:20 | NUR ---
Problems reprioritized. Patient report given, questions answered & plan of care reviewed with BG Gonsalez.
[2019-05-26] MEDS: piperacillin/tazo 3.375gm/50ml 50 ML IV SCH ×2 (07:59→20:06)
[2019-05-26] MEDS ORDERED: 1/2 NS IV SCH (11:40)
[2019-05-26] MEDS ORDERED: POTASSIUM CL IV SCH (11:40)
[2019-05-26] MEDS ORDERED: phytonadione inj. 10 MG in normal saline 100ml IV soln 99 ML IV ONE (11:40)
[2019-05-26] MEDS: potassium cl 20mEq in 1/2 NS 1,000 ML IV SCH (14:07)
[2019-05-26 14:33] LABS: HEMATOCRIT 25.5 % (35.0-45.0); HEMOGLOBIN 8.8 g/dl (12.0-16.0); MEAN CORPUSCULAR HGB CONC 34.6 g/dL (33.0-36.5); MEAN CORPUSCULAR VOLUME 86.7 FL (78-98); MEAN PLATELET VOLUME 8.3 FL (7.4-10.4); PLATELET COUNT 51 X10'3 (140-440); RED BLOOD COUNT 2.94 X10'6 (4.20-5.60); RED CELL DISTRIBUTION WIDTH 16.6 % (11.5-14.5); WHITE BLOOD COUNT 14.7 X10'3 (4.5-11.0)
--- NOTE | 2019-05-26 14:51 | NUR ---
Follow up: tube feedings have been started on patient per MD order using vital high protein, discussed with bedside RN that recommendations are in RD chart note for goal and water flush. MD okay for TF to advance to goal and to provide water flushes per RD recs, discussed at rounds. Wound consult re: low albumin, skin breakdown, increased needs. Noted, patient has partial thickness wound to gluteal sulcus, WOC following. TF recs have been made. No consult for TF yet. Will continue to follow. Mehul trigger: Pt Mehul 11 w/ skin intact. Pt intubated s/p rapid response found to have large GIB receiving 9 units of blood per MD; lost lots of clotting factors along w/ ALB since essentially total blood transfusion yesterday per MD. S/p mesenteric angiogram w/ embolization of gastroduodenal artery; no hematoma present per MD note. Per MD hyperchloremic acidosis DX in addition to potential for ischemic bowel pending GI surgeon consult. To remain NPO at this time and potential for TF tomorrow if GI clears per MD at rounds. Pt CT shows moderate fluid in peritoneum, possible ascending and proximal transverse colon colitis, enlarged spleen, and cirrhotic liver per MD at rounds. Pt has no hx etoh or liver disease. GLU 412 started on insulin drip w/ no hx DM on steroids. Will monitor for GI results; EN recs below pending MD approval. Rec: 1. Continuous tube feeding per OG tube using Vital High Protein at 85ml/hr goal; to provide 2040ml fluid, 1714ml free water, 2040kcals, and 179g protein. Initiate at 20ml/hr and advance 20ml Q8 to goal as tolerated. 2. Water flush 200ml Q6 3. Prealbumin Q M/Th, daily wts Addendum: 05/26/19 at [address] Amended: Links added.
--- NOTE | 2019-05-26 16:00 | NUR ---
Patient less drowsy, but still unable to follow commands; weaning parameters performed by RT. notified that patient does not qualify for extubation yet. Will continue to monitor.
[2019-05-26] MEDS: LORazepam 2 mg/ml vial IV PRN ×3 (17:19→23:03)
--- NOTE | 2019-05-26 18:28 | NUR ---
Problems reprioritized. Patient report given, questions answered & plan of care reviewed with Tawnya PEDERSON.
--- NOTE | 2019-05-26 18:30 | NUR ---
Patient in room [facility] 2008. I have received report from Wallace PEDERSON and had the opportunity to ask questions and assume patient care. Addendum: 05/27/19 at 0535 by Tawnya Plascencia RN Charted by Jovanny PEDERSON
[2019-05-26] MEDS: lactobacillus rhamnosus 10,000 MMU CELLS/CAPSULE PO SCH (19:19)
[2019-05-26] MEDS: HYDROcodone/acetaminophen 10/325mg tab PO PRN (19:20)
--- NOTE | 2019-05-26 19:45 | NUR ---
Pt restless, lifts body off bed, pulls at restraints. Shakes head, biting down on ETT tube. Calms down slightly to voice. Addendum: 05/27/19 at 0536 by Tawnya Plascencia RN Charted by Jovanny PEDERSON
[2019-05-26] MEDS: insulin glargine (Lantus) pen - multi-dose SQ SCH (20:10)
[2019-05-26] MEDS: octreotide inj. 1,250 MCG in normal saline 250ml IV soln 243.75 ML IV SCH (22:28)
[2019-05-27] VITALS (27 sets, daily range): BP systolic 79–158; BP diastolic 46–86
[2019-05-27] MEDS: HYDROcodone/acetaminophen 10/325mg tab PO PRN ×2 (01:18→07:22)
[2019-05-27] MEDS: insulin regular, human vial - multi-dose SQ SCH ×4 (02:48→20:49)
[2019-05-27] MEDS: ipratropium/albuterol 3ml nebule NEB SCH ×6 (02:49→23:08)
[2019-05-27] MEDS: hydrocortisone sod succ/PF 100mg/2ml inj. IV SCH ×4 (02:49→20:40)
[2019-05-27] MEDS: LORazepam 2 mg/ml vial IV PRN (02:49)
[2019-05-27] MEDS: mineral oil/petrolatum ophthal oint EACHEYE SCH ×4 (02:50→20:40)
[2019-05-27] MEDS: VANCOMYCIN LEVEL IV SCH (03:00)
[2019-05-27 03:01] LABS: BASOPHILS % (AUTO) 0.2 % (0-1); EOSINOPHILS % (AUTO) 0 % (0-6); HEMATOCRIT 23.6 % (35.0-45.0); HEMOGLOBIN 8.1 g/dl (12.0-16.0); LYMPHOCYTES # (AUTO) 1.7 X10'3 (1.1-4.8); LYMPHOCYTES % (AUTO) 14.6 % (21-51); MEAN CORPUSCULAR HEMOGLOBIN 29.9 PG (27.0-31.0); MEAN CORPUSCULAR HGB CONC 34.4 g/dL (33.0-36.5); MEAN CORPUSCULAR VOLUME 87.2 FL (78-98); MEAN PLATELET VOLUME 8.8 FL (7.4-10.4); MONOCYTES # (AUTO) 0.6 X10'3 (0-0.9); MONOCYTES % (AUTO) 5.1 % (2-12); NEUTROPHILS % (AUTO) 80.1 % (42-75); RED BLOOD COUNT 2.71 X10'6 (4.20-5.60); RED CELL DISTRIBUTION WIDTH 16.6 % (11.5-14.5); WHITE BLOOD COUNT 11.3 X10'3 (4.5-11.0)
[2019-05-27 03:06] LABS: PLATELET COUNT 46 X10'3 (140-440)
[2019-05-27 03:33] LABS: ALBUMIN 1.9 G/DL (3.4-5.0); ALBUMIN/GLOBULIN RATIO 0.9 (1.1-1.5); ALKALINE PHOSPHATASE 138 IU/L (46-116); ANION GAP 4 (8-16); BILIRUBIN,TOTAL 1.6 MG/DL (0.1-1.0); BLOOD UREA NITROGEN 38 MG/DL (7-18); BUN/CREATININE RATIO 25.9 (6.6-38.0); CALCIUM 7.5 MG/DL (8.5-10.1); CHLORIDE 111 MMOL/L (99-107); CREATININE 1.47 MG/DL (0.40-0.90); GLUCOSE 175 MG/DL (70-104); MAGNESIUM 2.4 MG/DL (1.5-2.4); PHOSPHORUS 2.9 MG/DL (2.3-4.5); POTASSIUM 3.7 MMOL/L (3.5-5.1); SODIUM 143 MMOL/L (135-145); TOTAL CARBON DIOXIDE 27.8 MMOL/L (24-32); VANCOMYCIN,RANDOM 8.7 UG/ML; eGFR 36 ML/MIN
[2019-05-27] MEDS: potassium cl 20mEq in 1/2 NS 1,000 ML IV SCH ×2 (03:41→14:11)
[2019-05-27 03:42] LABS: ALANINE AMINOTRANSFERASE 1525 U/L (12-78); ASPARTATE AMINO TRANSFERASE 1311 U/L (10-37)
[2019-05-27 04:01] LABS: ABG BASE EXCESS 2.5 mmol/L (-2.0-3.0); ABG HCO3 27.3 mmol/L (22.0-26.0); ABG OXYGEN SATURATION 94.5 % (95-98); ABG PCO2 (T) 40.4 mmHg (35.0-45.0); ABG PH (T) 7.442 (7.350-7.450); ABG PO2 (T) 71.8 mmHg (83-108); FCOHb 0.3 % (0.5-1.5); FMetHb 0.2 % (0.3-1.12); MINUTE VOLUME 8 L/min; PATIENT TEMPERATURE 35.6; PEEP 5 cm H2O; RESPIRATORY RATE 12 b/min; RESPIRATORY RATE (OBSERVED) 15 b/min; TIDAL VOLUME 450 mL
--- NOTE | 2019-05-27 04:12 | NUR ---
Pt restless, resistive to care. Opens eyes spontaneously, does not follow commands. Addendum: 05/27/19 at 0536 by Tawnya Plascencia RN Charted by Jovanny PEDERSON.
[2019-05-27] MEDS: pantoprazole 40MG/NS 100ML BAG 100 ML IV SCH ×5 (04:23→23:23)
--- NOTE | 2019-05-27 06:30 | NUR ---
Problems reprioritized. Patient report given, questions answered & plan of care reviewed with Wallace PEDERSON.
[2019-05-27] MEDS ORDERED: vancomycin/NS 1 GM ADD-VANTAGE 250 ML IV ONE (07:00)
[2019-05-27] MEDS: lactobacillus rhamnosus 10,000 MMU CELLS/CAPSULE PO SCH ×2 (07:17→20:40)
[2019-05-27] MEDS: piperacillin/tazo 3.375gm/50ml 50 ML IV SCH ×2 (07:35→20:39)
--- NOTE | 2019-05-27 11:30 | NUR ---
Rectal bag placed on patient; however, patient too restless and kicked bag off; poor seal. Will continue freq maria a care.
[2019-05-27] MEDS: dexmedetomidin/NS 400mcg/100ml 100 ML IV SCH ×2 (12:03→20:12)
[2019-05-27 13:05] LABS: HEMATOCRIT 24.7 % (35.0-45.0); HEMOGLOBIN 8.3 g/dl (12.0-16.0); MEAN CORPUSCULAR HEMOGLOBIN 29.4 PG (27.0-31.0); MEAN CORPUSCULAR HGB CONC 33.5 g/dL (33.0-36.5); MEAN CORPUSCULAR VOLUME 87.6 FL (78-98); MEAN PLATELET VOLUME 8.3 FL (7.4-10.4); RED BLOOD COUNT 2.82 X10'6 (4.20-5.60); RED CELL DISTRIBUTION WIDTH 16.8 % (11.5-14.5); WHITE BLOOD COUNT 11.8 X10'3 (4.5-11.0)
[2019-05-27 13:10] LABS: PLATELET COUNT 48 X10'3 (140-440)
--- NOTE | 2019-05-27 13:24 | NUR ---
Patient SBP dropped from 130s to 78 after 8ml of Precedex administration; patient less responsive. Precedex stopped, patient supine with lower extremities elevated. Dr. Sosa at bedside and aware of situation. 500ml Normal saline bolus ordered. Will continue to monitor. Addendum: 05/27/19 at 1505 by Wallace Weeks RN Plt of 48 up from 46; Dr. Sosa notified at this time; no changes in orders
[2019-05-27] MEDS ORDERED: normal saline 500ml IV soln 500 ML IV ONE (13:30)
--- NOTE | 2019-05-27 14:26 | NUR ---
Reassessment: Pt remains intubated and sedated and tolerating TF at goal with GRV 0-180 mL. Per RN at critical care rounds pt with high stool output, documented with 7 BMs 05/26 per I&O, potentially to get a rectal bag. Shock liver improving per MD notes. Will continue to follow. Rec: 1. Continuous tube feeding per OG tube using Vital High Protein at 85ml/hr goal; to provide 2040ml fluid, 1714ml free water, 2040kcals, and 179g protein. Initiate at 20ml/hr and advance 20ml Q8 to goal as tolerated. 2. Water flush 200ml Q6 3. Prealbumin Q /, daily wts Addendum: 05/27/19 at [address] Amended: Links added.
--- NOTE | 2019-05-27 16:19 | NUR ---
Patient becoming more anxious/agitated in bed; okay to restart Precedex at 0.1mcg/kg/hr per Dr. Sosa; will continue to monitor.
--- NOTE | 2019-05-27 17:13 | NUR ---
Patient report given to Stacey PEDERSON and Lai PEDERSON; all questions answered.
--- NOTE | 2019-05-27 17:17 | NUR ---
Patient in room CICU 2008. I have received report from Wallace PEDERSON and had the opportunity to ask questions and assume patient care.
[2019-05-27 18:05] LABS: HEMATOCRIT 23.7 % (35.0-45.0); HEMOGLOBIN 8.1 g/dl (12.0-16.0); MEAN CORPUSCULAR HGB CONC 34.1 g/dL (33.0-36.5); MEAN CORPUSCULAR VOLUME 88.1 FL (78-98); MEAN PLATELET VOLUME 8.4 FL (7.4-10.4); RED CELL DISTRIBUTION WIDTH 16.7 % (11.5-14.5); WHITE BLOOD COUNT 10.1 X10'3 (4.5-11.0)
[2019-05-27 18:08] LABS: PLATELET COUNT 44 X10'3 (140-440)
--- NOTE | 2019-05-27 18:27 | NUR ---
Problems reprioritized. Patient report given, questions answered & plan of care reviewed with Emy PEDERSON.
--- NOTE | 2019-05-27 18:36 | NUR ---
Patient in room CICU 2008. I have received report from Stacey RN and BG Borrero and had the opportunity to ask questions and assume patient care.
[2019-05-27] MEDS ORDERED: hydrocortisone sod succ/PF 100mg/2ml inj. IV SCH ×2 (20:00)
[2019-05-27] MEDS: insulin glargine (Lantus) pen - multi-dose SQ SCH (20:51)
[2019-05-28] VITALS (23 sets, daily range): BP systolic 97–170; BP diastolic 48–86
[2019-05-28 02:12] LABS: HEMATOCRIT 26.5 % (35.0-45.0); HEMOGLOBIN 8.9 g/dl (12.0-16.0); MEAN CORPUSCULAR HEMOGLOBIN 29.4 PG (27.0-31.0); MEAN CORPUSCULAR HGB CONC 33.7 g/dL (33.0-36.5); MEAN CORPUSCULAR VOLUME 87.4 FL (78-98); MEAN PLATELET VOLUME 8.3 FL (7.4-10.4); PLATELET COUNT 57 X10'3 (140-440); RED BLOOD COUNT 3.03 X10'6 (4.20-5.60); RED CELL DISTRIBUTION WIDTH 16.5 % (11.5-14.5); WHITE BLOOD COUNT 22.1 X10'3 (4.5-11.0)
[2019-05-28] MEDS: hydrocortisone sod succ/PF 100mg/2ml inj. IV SCH ×4 (03:08→19:38)
[2019-05-28] MEDS: mineral oil/petrolatum ophthal oint EACHEYE SCH ×4 (03:09→19:38)
[2019-05-28] MEDS: insulin regular, human vial - multi-dose SQ SCH ×4 (03:17→19:58)
[2019-05-28] MEDS: ipratropium/albuterol 3ml nebule NEB SCH ×6 (03:30→22:22)
[2019-05-28 03:46] LABS: ABG BASE EXCESS 2.2 mmol/L (-2.0-3.0); ABG HCO3 26.2 mmol/L (22.0-26.0); ABG OXYGEN SATURATION 92.8 % (95-98); ABG PCO2 (T) 37.9 mmHg (35.0-45.0); ABG PH (T) 7.457 (7.350-7.450); ABG PO2 (T) 67.8 mmHg (83-108); FCOHb 0.3 % (0.5-1.5); FMetHb 0.3 % (0.3-1.12); FO2Hb 92.2 % (94-100); MINUTE VOLUME 8 L/min; PEEP 5 cm H2O; RESPIRATORY RATE 12 b/min; RESPIRATORY RATE (OBSERVED) 14 b/min; TIDAL VOLUME 450 mL; TOTAL HEMOGLOBIN 8.4 G/dl (12.0-16.0)
[2019-05-28] MEDS: potassium cl 20mEq in 1/2 NS 1,000 ML IV SCH ×3 (04:19→19:38)
[2019-05-28] MEDS: pantoprazole 40MG/NS 100ML BAG 100 ML IV SCH ×4 (04:30→19:39)
[2019-05-28] MEDS: dexmedetomidin/NS 400mcg/100ml 100 ML IV SCH ×2 (05:39→09:56)
[2019-05-28 06:11] LABS: BASOPHILS % (AUTO) 0.1 % (0-1); EOSINOPHILS % (AUTO) 0.1 % (0-6); HEMATOCRIT 23.4 % (35.0-45.0); LYMPHOCYTES # (AUTO) 1.5 X10'3 (1.1-4.8); LYMPHOCYTES % (AUTO) 11.9 % (21-51); MEAN CORPUSCULAR HEMOGLOBIN 30.3 PG (27.0-31.0); MEAN CORPUSCULAR HGB CONC 34.3 g/dL (33.0-36.5); MEAN CORPUSCULAR VOLUME 88.2 FL (78-98); MEAN PLATELET VOLUME 8.6 FL (7.4-10.4); MONOCYTES # (AUTO) 1.1 X10'3 (0-0.9); MONOCYTES % (AUTO) 8.7 % (2-12); NEUTROPHILS # (AUTO) 9.8 X10'3 (1.8-7.7); NEUTROPHILS % (AUTO) 79.2 % (42-75); RED BLOOD COUNT 2.65 X10'6 (4.20-5.60); RED CELL DISTRIBUTION WIDTH 16.8 % (11.5-14.5); WHITE BLOOD COUNT 12.4 X10'3 (4.5-11.0)
--- NOTE | 2019-05-28 06:25 | NUR ---
Problems reprioritized. Patient report given, questions answered & plan of care reviewed with BG Mercado.
[2019-05-28 06:26] LABS: PLATELET COUNT 45 X10'3 (140-440)
[2019-05-28 06:29] LABS: ALANINE AMINOTRANSFERASE 964 U/L (12-78); ALBUMIN 1.9 G/DL (3.4-5.0); ALBUMIN/GLOBULIN RATIO 0.8 (1.1-1.5); ALKALINE PHOSPHATASE 129 IU/L (46-116); ANION GAP 5 (8-16); ASPARTATE AMINO TRANSFERASE 458 U/L (10-37); BILIRUBIN,TOTAL 1.7 MG/DL (0.1-1.0); BLOOD UREA NITROGEN 41 MG/DL (7-18); CALCIUM 7.5 MG/DL (8.5-10.1); CHLORIDE 112 MMOL/L (99-107); CREATININE 1.14 MG/DL (0.40-0.90); GLUCOSE 121 MG/DL (70-104); MAGNESIUM 2.3 MG/DL (1.5-2.4); PHOSPHORUS 2.5 MG/DL (2.3-4.5); POTASSIUM 3.5 MMOL/L (3.5-5.1); SODIUM 144 MMOL/L (135-145); TOTAL CARBON DIOXIDE 27.5 MMOL/L (24-32); TOTAL PROTEIN 4.2 G/DL (6.4-8.2); eGFR 48 ML/MIN
[2019-05-28 07:18] LABS: NUCLEATED RED BLOOD CELLS 2 /100WBC (0-0); TOTAL CELLS COUNTED 100
[2019-05-28 07:19] LABS: ANISOCYTOSIS 1+; PLATELET ESTIMATE DECREASED; POIKILOCYTOSIS FEW; POLYCHROMASIA FEW
[2019-05-28] MEDS: piperacillin/tazo 3.375gm/50ml 50 ML IV SCH (08:36)
[2019-05-28] MEDS: lactobacillus rhamnosus 10,000 MMU CELLS/CAPSULE PO SCH ×2 (08:37→19:38)
[2019-05-28 13:08] LABS: HEMATOCRIT 24.6 % (35.0-45.0); HEMOGLOBIN 8.4 g/dl (12.0-16.0); MEAN CORPUSCULAR HEMOGLOBIN 30.5 PG (27.0-31.0); MEAN CORPUSCULAR HGB CONC 34.3 g/dL (33.0-36.5); MEAN CORPUSCULAR VOLUME 88.8 FL (78-98); MEAN PLATELET VOLUME 8.7 FL (7.4-10.4); RED BLOOD COUNT 2.77 X10'6 (4.20-5.60); RED CELL DISTRIBUTION WIDTH 16.8 % (11.5-14.5); WHITE BLOOD COUNT 10.6 X10'3 (4.5-11.0)
[2019-05-28 13:13] LABS: PLATELET COUNT 40 X10'3 (140-440)
[2019-05-28 18:02] LABS: HEMATOCRIT 25.2 % (35.0-45.0); HEMOGLOBIN 8.4 g/dl (12.0-16.0); MEAN CORPUSCULAR HEMOGLOBIN 29.6 PG (27.0-31.0); MEAN CORPUSCULAR HGB CONC 33.5 g/dL (33.0-36.5); MEAN CORPUSCULAR VOLUME 88.3 FL (78-98); MEAN PLATELET VOLUME 8.2 FL (7.4-10.4); RED BLOOD COUNT 2.85 X10'6 (4.20-5.60); RED CELL DISTRIBUTION WIDTH 16.6 % (11.5-14.5); WHITE BLOOD COUNT 10.8 X10'3 (4.5-11.0)
[2019-05-28 18:06] LABS: PLATELET COUNT 43 X10'3 (140-440)
--- NOTE | 2019-05-28 18:30 | NUR ---
Patient in room CICU 2008. I have received report from BG Mercado and had the opportunity to ask questions and assume patient care.
[2019-05-28] MEDS: octreotide inj. 1,250 MCG in normal saline 250ml IV soln 243.75 ML IV SCH (19:39)
[2019-05-28] MEDS: insulin glargine (Lantus) pen - multi-dose SQ SCH (20:00)
[2019-05-29] VITALS (24 sets, daily range): BP systolic 102–182; BP diastolic 51–98
[2019-05-29] MEDS: piperacillin/tazo 3.375gm/50ml 50 ML IV SCH ×3 (00:17→17:01)
[2019-05-29] MEDS: dexmedetomidin/NS 400mcg/100ml 100 ML IV SCH ×4 (00:33→21:54)
[2019-05-29 00:52] LABS: HEMATOCRIT 25.6 % (35.0-45.0); HEMOGLOBIN 8.7 g/dl (12.0-16.0); MEAN CORPUSCULAR HEMOGLOBIN 30.1 PG (27.0-31.0); MEAN CORPUSCULAR VOLUME 88.5 FL (78-98); MEAN PLATELET VOLUME 8.4 FL (7.4-10.4); RED BLOOD COUNT 2.89 X10'6 (4.20-5.60); RED CELL DISTRIBUTION WIDTH 17.2 % (11.5-14.5); WHITE BLOOD COUNT 10.4 X10'3 (4.5-11.0)
[2019-05-29 00:59] LABS: PLATELET COUNT 40 X10'3 (140-440)
[2019-05-29] MEDS: pantoprazole 40MG/NS 100ML BAG 100 ML IV SCH ×5 (01:44→21:10)
[2019-05-29] MEDS: hydrocortisone sod succ/PF 100mg/2ml inj. IV SCH ×4 (01:44→19:37)
[2019-05-29] MEDS: mineral oil/petrolatum ophthal oint EACHEYE SCH ×4 (01:44→19:34)
[2019-05-29] MEDS: insulin regular, human vial - multi-dose SQ SCH (01:52)
[2019-05-29] MEDS: ipratropium/albuterol 3ml nebule NEB SCH ×6 (02:24→23:11)
[2019-05-29 04:05] LABS: ABG BASE EXCESS 1.7 mmol/L (-2.0-3.0); ABG HCO3 25.4 mmol/L (22.0-26.0); ABG OXYGEN SATURATION 92.9 % (95-98); ABG PCO2 (T) 35.1 mmHg (35.0-45.0); ABG PH (T) 7.475 (7.350-7.450); ABG PO2 (T) 63.5 mmHg (83-108); FCOHb 0.3 % (0.5-1.5); FMetHb 0.1 % (0.3-1.12); FO2Hb 92.5 % (94-100); MINUTE VOLUME 8 L/min; PATIENT TEMPERATURE 36.3; PEEP 5 cm H2O; RESPIRATORY RATE 12 b/min; RESPIRATORY RATE (OBSERVED) 14 b/min; TIDAL VOLUME 450 mL; TOTAL HEMOGLOBIN 9.7 G/dl (12.0-16.0)
--- NOTE | 2019-05-29 06:04 | NUR ---
Tube feed stopped at 0400 due to a 625 residual. Rechecked this hour and it is 375. will continue to hold at this time per protocol.
[2019-05-29 06:15] LABS: BASOPHILS % (AUTO) 0.1 % (0-1); EOSINOPHILS % (AUTO) 0 % (0-6); HEMATOCRIT 26.1 % (35.0-45.0); LYMPHOCYTES # (AUTO) 1.6 X10'3 (1.1-4.8); LYMPHOCYTES % (AUTO) 13.3 % (21-51); MEAN CORPUSCULAR HEMOGLOBIN 30.5 PG (27.0-31.0); MEAN CORPUSCULAR HGB CONC 34.3 g/dL (33.0-36.5); MEAN PLATELET VOLUME 8.9 FL (7.4-10.4); MONOCYTES # (AUTO) 1.1 X10'3 (0-0.9); MONOCYTES % (AUTO) 8.6 % (2-12); NEUTROPHILS # (AUTO) 9.5 X10'3 (1.8-7.7); RED BLOOD COUNT 2.93 X10'6 (4.20-5.60); RED CELL DISTRIBUTION WIDTH 17.1 % (11.5-14.5); WHITE BLOOD COUNT 12.2 X10'3 (4.5-11.0)
[2019-05-29 06:20] LABS: PLATELET COUNT 39 X10'3 (140-440)
--- NOTE | 2019-05-29 06:27 | NUR ---
Problems reprioritized. Patient report given, questions answered & plan of care reviewed with BG Rutledge.
[2019-05-29 06:33] LABS: ALANINE AMINOTRANSFERASE 693 U/L (12-78); ALBUMIN 1.9 G/DL (3.4-5.0); ALBUMIN/GLOBULIN RATIO 0.8 (1.1-1.5); ALKALINE PHOSPHATASE 126 IU/L (46-116); ANION GAP 3 (8-16); ASPARTATE AMINO TRANSFERASE 226 U/L (10-37); BILIRUBIN,TOTAL 1.8 MG/DL (0.1-1.0); BLOOD UREA NITROGEN 39 MG/DL (7-18); BUN/CREATININE RATIO 37.1 (6.6-38.0); CALCIUM 7.7 MG/DL (8.5-10.1); CHLORIDE 112 MMOL/L (99-107); CREATININE 1.05 MG/DL (0.40-0.90); GLUCOSE 91 MG/DL (70-104); MAGNESIUM 2.4 MG/DL (1.5-2.4); PHOSPHORUS 3.2 MG/DL (2.3-4.5); POTASSIUM 3.6 MMOL/L (3.5-5.1); SODIUM 143 MMOL/L (135-145); TOTAL CARBON DIOXIDE 27.6 MMOL/L (24-32); TOTAL PROTEIN 4.3 G/DL (6.4-8.2); eGFR 53 ML/MIN
[2019-05-29 07:08] LABS: TOTAL CELLS COUNTED 100
[2019-05-29 07:09] LABS: ANISOCYTOSIS 1+; PLATELET ESTIMATE DECREASED; POLYCHROMASIA FEW
[2019-05-29] MEDS: lactobacillus rhamnosus 10,000 MMU CELLS/CAPSULE PO SCH ×2 (07:12→19:38)
[2019-05-29] MEDS: potassium cl 20mEq in 1/2 NS 1,000 ML IV SCH ×2 (07:12→21:09)
[2019-05-29 11:26] LABS: HEMATOCRIT 27.7 % (35.0-45.0); HEMOGLOBIN 9.2 g/dl (12.0-16.0); MEAN CORPUSCULAR HEMOGLOBIN 29.4 PG (27.0-31.0); MEAN CORPUSCULAR HGB CONC 33.2 g/dL (33.0-36.5); MEAN CORPUSCULAR VOLUME 88.4 FL (78-98); MEAN PLATELET VOLUME 8.2 FL (7.4-10.4); RED BLOOD COUNT 3.14 X10'6 (4.20-5.60)
[2019-05-29 11:46] LABS: PLATELET COUNT 42 X10'3 (140-440)
[2019-05-29] MEDS: HYDROcodone/acetaminophen 10/325mg tab PO PRN ×2 (17:05→19:16)
[2019-05-29 18:41] LABS: HEMATOCRIT 28.8 % (35.0-45.0); HEMOGLOBIN 9.6 g/dl (12.0-16.0); MEAN CORPUSCULAR HEMOGLOBIN 29.8 PG (27.0-31.0); MEAN CORPUSCULAR HGB CONC 33.4 g/dL (33.0-36.5); MEAN CORPUSCULAR VOLUME 89.2 FL (78-98); RED BLOOD COUNT 3.23 X10'6 (4.20-5.60); RED CELL DISTRIBUTION WIDTH 17.1 % (11.5-14.5); WHITE BLOOD COUNT 12.8 X10'3 (4.5-11.0)
[2019-05-29 18:51] LABS: PLATELET COUNT 43 X10'3 (140-440)
[2019-05-29] MEDS: LORazepam 2 mg/ml vial IV PRN (19:02)
--- NOTE | 2019-05-29 19:30 | NUR ---
kendall video recorder mechanic on unit. I made Kendall aware of this patient critical value of platelet 43. this number is improved since last count. Also I made kendall aware of the difficulty of patient behaviour - increased agitation, restlessness, trying to tongue out ETT, hitting bed rails with wrists/ arms - I let Kendall know I was increasing precedex gtt and soon to give the PRN ativan dose I have available. We will not be extubateing this patient this evening. no new orders. merely an update. I will let kendall know if the ativan dose does not help with the agitation as patient is at risk to self extubate with her agitation and restlessness at this time.
[2019-05-29] MEDS: insulin glargine (Lantus) pen - multi-dose SQ SCH (20:21)
--- NOTE | 2019-05-29 22:15 | NUR ---
Patient is much more calm and comfortable at this time. HOWEVER, THE PATIENT BP READS 182/96 (124) WITH A LEVELED AND ZERO'D ZEINAB - LEFT FEMORAL - WITH A GOOD WAVEFORM. NIBP CUFF ON RIGHT UPPER ARM READS 157/78 (101). I HAVE NO PRN ORDER FOR BP PARAMETERS. I CALLED CELESTE BAPTISTE TO GIVE HIM THE AFOREMENTIONED INFORMATION REGARDING BP. ORDERS GIVEN FOR A ONE TIME DOSE OF HYDRALAZINE TO KEEP SBP READING ON THE ZEINAB LESS THAN 165 MMHG. WILL CONTINUE TO MONITOR Addendum: 05/30/19 at 0031 by Ravi Callaway RN I WANTED TO ADD THE BOYD CATHETER TEMP READS 35.7 AND AXILLARY TEMP READS 36.1. PATIENT WARM TO TOUCH BUT ALSO ADDED BLANKET AND SHEET. URINE OUTPUT IS BORDERLINE AND MAY BE AFFECTING THE RESULTS
[2019-05-29] MEDS ORDERED: hydrALAZINE 20mg/ml inj. IV ONE ×2 (22:45)
[2019-05-30] VITALS (23 sets, daily range): BP systolic 114–185; BP diastolic 57–102
[2019-05-30] MEDS: piperacillin/tazo 3.375gm/50ml 50 ML IV SCH ×4 (00:44→23:54)
[2019-05-30 00:54] LABS: BASOPHILS % (AUTO) 0.2 % (0-1); EOSINOPHILS % (AUTO) 0 % (0-6); HEMATOCRIT 30.3 % (35.0-45.0); LYMPHOCYTES # (AUTO) 1.4 X10'3 (1.1-4.8); LYMPHOCYTES % (AUTO) 12.8 % (21-51); MEAN CORPUSCULAR HEMOGLOBIN 29.5 PG (27.0-31.0); MEAN CORPUSCULAR HGB CONC 33.1 g/dL (33.0-36.5); MEAN CORPUSCULAR VOLUME 89.3 FL (78-98); MEAN PLATELET VOLUME 8.2 FL (7.4-10.4); MONOCYTES # (AUTO) 0.7 X10'3 (0-0.9); NEUTROPHILS # (AUTO) 9.1 X10'3 (1.8-7.7); RED BLOOD COUNT 3.39 X10'6 (4.20-5.60); WHITE BLOOD COUNT 11.3 X10'3 (4.5-11.0)
[2019-05-30 01:02] LABS: PLATELET COUNT 43 X10'3 (140-440)
[2019-05-30 01:04] LABS: ALANINE AMINOTRANSFERASE 564 U/L (12-78); ALBUMIN 1.9 G/DL (3.4-5.0); ALBUMIN/GLOBULIN RATIO 0.8 (1.1-1.5); ALKALINE PHOSPHATASE 134 IU/L (46-116); ANION GAP 8 (8-16); ASPARTATE AMINO TRANSFERASE 133 U/L (10-37); BILIRUBIN,TOTAL 2.5 MG/DL (0.1-1.0); BLOOD UREA NITROGEN 39 MG/DL (7-18); BUN/CREATININE RATIO 36.1 (6.6-38.0); CALCIUM 7.6 MG/DL (8.5-10.1); CHLORIDE 110 MMOL/L (99-107); CREATININE 1.08 MG/DL (0.40-0.90); GLUCOSE 129 MG/DL (70-104); POTASSIUM 4.3 MMOL/L (3.5-5.1); SODIUM 142 MMOL/L (135-145); TOTAL CARBON DIOXIDE 23.6 MMOL/L (24-32); TOTAL PROTEIN 4.4 G/DL (6.4-8.2); eGFR 51 ML/MIN
[2019-05-30] MEDS: dexmedetomidin/NS 400mcg/100ml 100 ML IV SCH ×3 (01:21→07:21)
[2019-05-30] MEDS: pantoprazole 40MG/NS 100ML BAG 100 ML IV SCH ×3 (02:21→12:41)
[2019-05-30] MEDS: hydrocortisone sod succ/PF 100mg/2ml inj. IV SCH ×3 (02:21→13:24)
[2019-05-30] MEDS: mineral oil/petrolatum ophthal oint EACHEYE SCH ×4 (02:21→20:00)
[2019-05-30] MEDS: ipratropium/albuterol 3ml nebule NEB SCH ×7 (02:53→23:00)
[2019-05-30 03:06] LABS: ABG BASE EXCESS 0.2 mmol/L (-2.0-3.0); ABG HCO3 22.7 mmol/L (22.0-26.0); ABG PCO2 (T) 28.1 mmHg (35.0-45.0); ABG PH (T) 7.521 (7.350-7.450); ABG PO2 (T) 62.2 mmHg (83-108); FCOHb 0.3 % (0.5-1.5); FMetHb 0.2 % (0.3-1.12); FO2Hb 92.5 % (94-100); MINUTE VOLUME 8 L/min; PATIENT TEMPERATURE 35.9; PEEP 5 cm H2O; RESPIRATORY RATE 12 b/min; RESPIRATORY RATE (OBSERVED) 16 b/min; TIDAL VOLUME 450 mL; TOTAL HEMOGLOBIN 10.6 G/dl (12.0-16.0)
[2019-05-30 05:44] LABS: HEMATOCRIT 29.7 % (35.0-45.0); HEMOGLOBIN 9.9 g/dl (12.0-16.0); MEAN CORPUSCULAR HEMOGLOBIN 30.2 PG (27.0-31.0); MEAN CORPUSCULAR HGB CONC 33.5 g/dL (33.0-36.5); MEAN CORPUSCULAR VOLUME 90.1 FL (78-98); MEAN PLATELET VOLUME 9.4 FL (7.4-10.4); RED BLOOD COUNT 3.29 X10'6 (4.20-5.60); RED CELL DISTRIBUTION WIDTH 17.4 % (11.5-14.5); WHITE BLOOD COUNT 11.4 X10'3 (4.5-11.0)
[2019-05-30 05:56] LABS: PLATELET COUNT 44 X10'3 (140-440)
--- NOTE | 2019-05-30 06:36 | NUR ---
Patient in room CICU 2008. I have received report from Ravi PEDERSON and had the opportunity to ask questions and assume patient care.
[2019-05-30 06:58] LABS: TOTAL CELLS COUNTED 100
[2019-05-30 06:59] LABS: ANISOCYTOSIS 1+; HYPOCHROMASIA 1+; PLATELET ESTIMATE DECREASED; POLYCHROMASIA 1+
[2019-05-30] MEDS: lactobacillus rhamnosus 10,000 MMU CELLS/CAPSULE PO SCH ×2 (07:27→21:46)
[2019-05-30] MEDS: potassium cl 20mEq in 1/2 NS 1,000 ML IV SCH (10:54)
--- NOTE | 2019-05-30 10:56 | NUR ---
Reassessment: Pt GRV up to 625 ml this morning, tube feeding currently off. Rate was previously at 70 ml, then turned down to 35 ml/hr, now off. Not meeting nutrition needs currently. Patient has LBM on 05/27, moderate in size. remains intubated and sedated. Is receiving norco. Per RN patient has hypoactive bowel sounds, per MD at rounds patient will be started on relistor. Will continue to follow. Rec: 1. Continuous tube feeding per OG tube using Vital High Protein at 85ml/hr goal; to provide 2040ml fluid, 1714ml free water, 2040kcals, and 179g protein. Recommend to restart tube feeding at starting rate of 30 ml/hr and advance by 20 ml q 4 hours, d/w RN. 2. Water flush 200ml Q6 3. Prealbumin Q /, daily wts Addendum: 05/30/19 at [address] Amended: Links added.
[2019-05-30] MEDS: methylnaltrexone br 12mg/0.6ml inj***SubQ only SQ SCH (10:58)
[2019-05-30] MEDS ORDERED: ipratropium/albuterol 3ml nebule NEB PRN (14:05)
[2019-05-30] MEDS ORDERED: racepinephrine 11.25mg/0.5ml nebule NEB PRN (14:05)
--- NOTE | 2019-05-30 14:19 | NUR ---
[address] Sosa's orders. Placed on 3L NC, tolerated well. Still producing thick creamy kaplan secretions.
--- NOTE | 2019-05-30 15:16 | NUR ---
Patient woke up from short sleep very confused and trying to leave hospital. Reoriented her to ICU and talked her through her fears. Patient verbalized feeling better and began to remember where she was and why she was here.
--- NOTE | 2019-05-30 18:20 | NUR ---
Problems reprioritized. Patient report given, questions answered & plan of care reviewed with Antoine PEDERSON.
--- NOTE | 2019-05-30 18:40 | NUR ---
I have received report and assumed care of pt. pt resting in bed rise and fall of chest cavity equile and symmetrical vs as charted assessment complete pt denies needs at this time
--- NOTE | 2019-05-30 20:20 | NUR ---
spoke to Clay SAHU hold insulin until pt remeets hyperglycemic protocol
[2019-05-30] MEDS: insulin glargine (Lantus) pen - multi-dose SQ SCH (21:00)
[2019-05-30] MEDS: ESOMEPRAZOLE 40 MG VIAL IV SCH (21:30)
[2019-05-31] VITALS (24 sets, daily range): BP systolic 105–142; BP diastolic 44–82
[2019-05-31] MEDS: potassium cl 20mEq in 1/2 NS 1,000 ML IV SCH (00:35)
[2019-05-31] MEDS: mineral oil/petrolatum ophthal oint EACHEYE SCH ×3 (02:00→07:02)
[2019-05-31] MEDS: ipratropium/albuterol 3ml nebule NEB SCH ×7 (02:39→20:27)
[2019-05-31 03:16] LABS: MEAN PLATELET VOLUME 8.3 FL (7.4-10.4)
[2019-05-31 03:18] LABS: HEMATOCRIT 29.5 % (35.0-45.0); HEMOGLOBIN 9.8 g/dl (12.0-16.0); MEAN CORPUSCULAR HGB CONC 33.3 g/dL (33.0-36.5); MEAN CORPUSCULAR VOLUME 89.9 FL (78-98); PLATELET COUNT 66 X10'3 (140-440); RED BLOOD COUNT 3.28 X10'6 (4.20-5.60); RED CELL DISTRIBUTION WIDTH 17.5 % (11.5-14.5); WHITE BLOOD COUNT 16.3 X10'3 (4.5-11.0)
[2019-05-31 03:30] LABS: ALANINE AMINOTRANSFERASE 375 U/L (12-78); ALBUMIN 1.7 G/DL (3.4-5.0); ALBUMIN/GLOBULIN RATIO 0.7 (1.1-1.5); ALKALINE PHOSPHATASE 122 IU/L (46-116); ANION GAP 4 (8-16); ASPARTATE AMINO TRANSFERASE 83 U/L (10-37); BILIRUBIN,TOTAL 2.6 MG/DL (0.1-1.0); BLOOD UREA NITROGEN 39 MG/DL (7-18); BUN/CREATININE RATIO 34.2 (6.6-38.0); CALCIUM 7.3 MG/DL (8.5-10.1); CHLORIDE 113 MMOL/L (99-107); CREATININE 1.14 MG/DL (0.40-0.90); GLUCOSE 109 MG/DL (70-104); POTASSIUM 4.6 MMOL/L (3.5-5.1); SODIUM 142 MMOL/L (135-145); TOTAL CARBON DIOXIDE 25.4 MMOL/L (24-32); TOTAL PROTEIN 4.2 G/DL (6.4-8.2); eGFR 48 ML/MIN
[2019-05-31 03:43] LABS: BANDS% (MANUAL) 6 % (0-10); LYMPHOCYTES % (MANUAL) 4 % (21-51); METAMYLEOCYTES% (MANUAL) 1 % (0-0); MONOCYTES % (MANUAL) 8 % (2-12); NEUTROPHILS % (MANUAL) 81 % (42-75); PLATELET ESTIMATE DECREASED; SMUDGE CELLS 1+; TOTAL CELLS COUNTED 100
[2019-05-31 03:44] LABS: ANISOCYTOSIS 1+
--- NOTE | 2019-05-31 06:27 | NUR ---
Patient in room ICU 2038. I have received report from Antoine PEDERSON and had the opportunity to ask questions and assume patient care.
[2019-05-31] MEDS: dexmedetomidin/NS 400mcg/100ml 100 ML IV SCH ×2 (06:53→07:02)
[2019-05-31] MEDS: lactobacillus rhamnosus 10,000 MMU CELLS/CAPSULE PO SCH ×2 (07:02→19:37)
[2019-05-31] MEDS: ESOMEPRAZOLE 40 MG VIAL IV SCH (07:02)
[2019-05-31] MEDS: piperacillin/tazo 3.375gm/50ml 50 ML IV SCH ×2 (07:02→15:19)
--- NOTE | 2019-05-31 12:34 | NUR ---
Reassessment: Pt extubated advanced to regular diet PO 25% first meal; TF d/c'd. LBM 05/27 relistor started yesterday w/ no other bowel care. Would benefit from routine bowel care. Will continue to monitor. Rec: 1. Continue regular diet per MD 2. routine bowel care w/ opioid antagonist per MD 3. monitor for ONS needs pending further PO hx 4. wt per rx Addendum: 05/31/19 at [address] Amended: Links added.
--- NOTE | 2019-05-31 12:47 | NUR ---
Left groin arterial line pulled at 1225; pressure held for 15min, no s/s of bleeding at puncture site. Will continue to reassess and monitor as day goes on. Patient tolerated well; currently lying flat with no c/o pain at this time.
[2019-05-31] MEDS: ondansetron/PF 4mg/2ml inj IV PRN (14:36)
--- NOTE | 2019-05-31 15:30 | NUR ---
Right IJ removed, pressure applied, no abnormal s/s of bleeding noted at the site. Patient has a working Extended PIV in upper left arm that was placed today.
--- NOTE | 2019-05-31 18:16 | NUR ---
Problems reprioritized. Patient report given, questions answered & plan of care reviewed with Susannah PEDERSON.
--- NOTE | 2019-05-31 18:21 | NUR ---
Patient in room ICU 2038. I have received report from BG Santoyo and had the opportunity to ask questions and assume patient care.
[2019-05-31] MEDS: pantoprazole 40mg Tablet.DR PO SCH (19:37)
--- NOTE | 2019-05-31 20:05 | NUR ---
Spoke with Clay Melendez NP re: Blood glucose of 49. Treating with 1 amp D50 and will recheck at this time. Patient has decreased appetite and did not eat lunch or dinner. Currently has 1/2NS with 20 mEq K at 75 ml/hr. ORDER: D5 1/2 NS with 20 K at 75ml/hr.
[2019-05-31] MEDS ORDERED: potassium CL 20mEq in D5-1/2NS 1,000 ML IV SCH (20:25)
--- NOTE | 2019-05-31 20:36 | NUR ---
D50 administered as IV bolus with fluid secondary to patient experiencing pain with IV push. Re check of blood glucose 77
[2019-05-31] MEDS: insulin glargine (Lantus) pen - multi-dose SQ SCH (21:00)
[2019-06-01] VITALS (24 sets, daily range): BP systolic 126–160; BP diastolic 46–73
[2019-06-01] MEDS: piperacillin/tazo 3.375gm/50ml 50 ML IV SCH ×2 (00:35→07:57)
[2019-06-01] MEDS: ipratropium/albuterol 3ml nebule NEB SCH ×4 (02:19→20:54)
[2019-06-01 04:49] LABS: BASOPHILS # (AUTO) 0.1 X10'3 (0-0.2); BASOPHILS % (AUTO) 0.3 % (0-1); EOSINOPHILS # (AUTO) 0.2 X10'3 (0-0.9); EOSINOPHILS % (AUTO) 1.2 % (0-6); HEMATOCRIT 30.6 % (35.0-45.0); LYMPHOCYTES # (AUTO) 2.8 X10'3 (1.1-4.8); LYMPHOCYTES % (AUTO) 15.8 % (21-51); MEAN CORPUSCULAR HEMOGLOBIN 29.8 PG (27.0-31.0); MEAN CORPUSCULAR HGB CONC 32.6 g/dL (33.0-36.5); MEAN CORPUSCULAR VOLUME 91.2 FL (78-98); MEAN PLATELET VOLUME 7.7 FL (7.4-10.4); MONOCYTES # (AUTO) 1.7 X10'3 (0-0.9); MONOCYTES % (AUTO) 9.6 % (2-12); NEUTROPHILS # (AUTO) 13.1 X10'3 (1.8-7.7); NEUTROPHILS % (AUTO) 73.1 % (42-75); PLATELET COUNT 69 X10'3 (140-440); RED BLOOD COUNT 3.36 X10'6 (4.20-5.60); RED CELL DISTRIBUTION WIDTH 18.5 % (11.5-14.5); WHITE BLOOD COUNT 17.9 X10'3 (4.5-11.0)
[2019-06-01 05:08] LABS: ALANINE AMINOTRANSFERASE 282 U/L (12-78); ALBUMIN 1.7 G/DL (3.4-5.0); ALBUMIN/GLOBULIN RATIO 0.6 (1.1-1.5); ALKALINE PHOSPHATASE 127 IU/L (46-116); ANION GAP 6 (8-16); ASPARTATE AMINO TRANSFERASE 72 U/L (10-37); BILIRUBIN,TOTAL 2.6 MG/DL (0.1-1.0); BLOOD UREA NITROGEN 33 MG/DL (7-18); BUN/CREATININE RATIO 31.4 (6.6-38.0); CALCIUM 7.4 MG/DL (8.5-10.1); CHLORIDE 112 MMOL/L (99-107); CREATININE 1.05 MG/DL (0.40-0.90); GLUCOSE 108 MG/DL (70-104); MAGNESIUM 2.1 MG/DL (1.5-2.4); SODIUM 141 MMOL/L (135-145); TOTAL CARBON DIOXIDE 23.5 MMOL/L (24-32); TOTAL PROTEIN 4.4 G/DL (6.4-8.2); eGFR 53 ML/MIN
[2019-06-01 05:09] LABS: POTASSIUM 4.8 MMOL/L (3.5-5.1)
--- NOTE | 2019-06-01 06:20 | NUR ---
Problems reprioritized. Patient report given, questions answered & plan of care reviewed with BG Santoyo.
--- NOTE | 2019-06-01 06:26 | NUR ---
Patient in room ICU 2038. I have received report from Susannah PEDERSON and had the opportunity to ask questions and assume patient care.
[2019-06-01] MEDS: pantoprazole 40mg Tablet.DR PO SCH ×2 (07:55→20:23)
[2019-06-01] MEDS: lactobacillus rhamnosus 10,000 MMU CELLS/CAPSULE PO SCH ×2 (07:55→20:24)
[2019-06-01] MEDS: methylnaltrexone br 12mg/0.6ml inj***SubQ only SQ SCH (07:57)
[2019-06-01] MEDS: HYDROcodone/acetaminophen 5mg/325mg tablet PO PRN ×2 (07:59→16:13)
[2019-06-01 11:41] LABS: CLARITY,URINE CLOUDY (Clear); COLOR,URINE YELLOW (Yellow); GLUCOSE, URINE NEGATIVE (Neg); KETONES,URINE NEGATIVE (Neg); LEUKOCYTE ESTERASE ,URINE NEGATIVE (Neg); NITRITES, URINE NEGATIVE (Neg); OCCULT BLOOD,URINE LARGE (Neg); PH,URINE 5.5 (4.8-8.0); PROTEIN,URINE NEGATIVE (Neg); UROBILINOGEN,URINE 0.2 E.U/dL (0.2-1.0)
[2019-06-01 11:42] LABS: UA COLLECTION TYPE NON-SPECIFIED
[2019-06-01 11:54] LABS: MUCUS STRANDS FEW /LPF (Neg); SQUAMOUS EPITHELIAL CELL,UR MODERATE /LPF (FEW)
[2019-06-01 11:55] LABS: BACTERIA,URINE 1+ /HPF (Neg); HYALINE CASTS 0-3 /LPF (NEGATIVE); RBC,URINE 50-100 /HPF (0-2); WBC,URINE 0-4 /HPF (0-4)
--- NOTE | 2019-06-01 16:06 | NUR ---
parham catheter removed; pt tolerated procedure well. will continue to monitor.
--- NOTE | 2019-06-01 16:49 | NUR ---
patient worked with PT.did not make it to chair. worked on balance at bedside. patient's skin is still weeping. VSS
--- NOTE | 2019-06-01 18:22 | NUR ---
Problems reprioritized. Patient report given, questions answered & plan of care reviewed with BG Astorga.
--- NOTE | 2019-06-01 18:30 | NUR ---
assumed care from Yarelis Thompson
--- NOTE | 2019-06-01 18:53 | NUR ---
no questions or concerns after sbar
--- NOTE | 2019-06-01 19:01 | NUR ---
patients daughter called checking up on patient gave her status update states "i will call back when she is finished."
[2019-06-01] MEDS: insulin glargine (Lantus) pen - multi-dose SQ SCH (21:00)
--- NOTE | 2019-06-01 22:41 | NUR ---
patient in bed eyes closed rr even un labored no observable s/s of acute stress at this time will continue to monitor
--- NOTE | 2019-06-01 23:12 | NUR ---
PATIENT IN BED EYES CLOSED COVERS ON RR EVEN UN LABORED NO OBSERVABLE S/S OF ACUTE STRESS AT THIS TIME
[2019-06-02] VITALS (16 sets, daily range): BP systolic 129–179; BP diastolic 58–85
--- NOTE | 2019-06-02 01:51 | NUR ---
patient in bed eyes closed covers on rr even un labored no observable s/s of acute stress at this time
--- NOTE | 2019-06-02 02:21 | NUR ---
ASKED PATIENT IF I COULD HELP OR GET ANYTHING FOR THEM THEY POLITLEY DECLINED AND ASKED TO ""JUST NEED SOME SLEEP."
[2019-06-02] MEDS: ipratropium/albuterol 3ml nebule NEB SCH ×4 (03:32→20:11)
[2019-06-02 04:28] LABS: BASOPHILS # (AUTO) 0.1 X10'3 (0-0.2); BASOPHILS % (AUTO) 0.5 % (0-1); EOSINOPHILS # (AUTO) 0.3 X10'3 (0-0.9); EOSINOPHILS % (AUTO) 1.8 % (0-6); HEMATOCRIT 32.3 % (35.0-45.0); HEMOGLOBIN 10.6 g/dl (12.0-16.0); LYMPHOCYTES # (AUTO) 2.3 X10'3 (1.1-4.8); MEAN CORPUSCULAR HEMOGLOBIN 30.3 PG (27.0-31.0); MEAN CORPUSCULAR HGB CONC 32.9 g/dL (33.0-36.5); MEAN CORPUSCULAR VOLUME 91.9 FL (78-98); MEAN PLATELET VOLUME 7.8 FL (7.4-10.4); MONOCYTES # (AUTO) 1.3 X10'3 (0-0.9); MONOCYTES % (AUTO) 7.4 % (2-12); NEUTROPHILS # (AUTO) 13.7 X10'3 (1.8-7.7); NEUTROPHILS % (AUTO) 77.3 % (42-75); PLATELET COUNT 82 X10'3 (140-440); RED BLOOD COUNT 3.52 X10'6 (4.20-5.60); RED CELL DISTRIBUTION WIDTH 19.2 % (11.5-14.5); WHITE BLOOD COUNT 17.7 X10'3 (4.5-11.0)
[2019-06-02 04:40] LABS: ALANINE AMINOTRANSFERASE 229 U/L (12-78); ALBUMIN 1.9 G/DL (3.4-5.0); ALBUMIN/GLOBULIN RATIO 0.6 (1.1-1.5); ALKALINE PHOSPHATASE 134 IU/L (46-116); ANION GAP 5 (8-16); ASPARTATE AMINO TRANSFERASE 68 U/L (10-37); BILIRUBIN,TOTAL 3.5 MG/DL (0.1-1.0); BLOOD UREA NITROGEN 25 MG/DL (7-18); CALCIUM 7.6 MG/DL (8.5-10.1); CHLORIDE 112 MMOL/L (99-107); CREATININE 0.96 MG/DL (0.40-0.90); GLUCOSE 74 MG/DL (70-104); PHOSPHORUS 2.9 MG/DL (2.3-4.5); POTASSIUM 4.4 MMOL/L (3.5-5.1); SODIUM 142 MMOL/L (135-145); TOTAL CARBON DIOXIDE 25.4 MMOL/L (24-32); TOTAL PROTEIN 4.9 G/DL (6.4-8.2); eGFR 58 ML/MIN
--- NOTE | 2019-06-02 04:58 | NUR ---
PATIENT IN BED EYES CLOSED RR EVEN UN LABORED NO OBSERVABLE S/S OF ACUTE STRESS AT THIS TIME
[2019-06-02 05:28] LABS: TOTAL CELLS COUNTED 100
[2019-06-02 05:31] LABS: ANISOCYTOSIS 2+; PLATELET ESTIMATE DECREASED; POIKILOCYTOSIS FEW; POLYCHROMASIA FEW
--- NOTE | 2019-06-02 06:22 | NUR ---
SBAR TO LELA RN NO QUESTIONS OR CONCERNS FROM DAY SHIFT RN AFTER ASSUMING CARE
--- NOTE | 2019-06-02 06:24 | NUR ---
Patient in room ICU 2038. I have received report from MARIO PEDERSON and had the opportunity to ask questions and assume patient care.
[2019-06-02] MEDS: lactobacillus rhamnosus 10,000 MMU CELLS/CAPSULE PO SCH ×2 (07:58→20:21)
[2019-06-02] MEDS: pantoprazole 40mg Tablet.DR PO SCH ×2 (07:58→20:21)
--- NOTE | 2019-06-02 08:00 | NUR ---
Care assumed, report received.
--- NOTE | 2019-06-02 08:06 | NUR ---
Problems reprioritized. Patient report given, questions answered & plan of care reviewed with JOEY PEDERSON.
--- NOTE | 2019-06-02 09:15 | NUR ---
drsg to bilateral arms changed for serous oozing, maxorb and optifoam applied. serous oozing from left groin, blisters noted fluid filled at top part of left thigh/groin area, maxorb and optiofoam applied. gluetal fold cleansed, exoriation noted, pt is incontinent, calmazine oint applied thickly and pure wick external catheter placed between labia for moisture control, explained purpose of same to patient and understanding noted. Pt was instructed to do leg and arm exercises, grossly edamatous with weeping skin,
--- NOTE | 2019-06-02 11:12 | NUR ---
Reassessment: Pt appetite remains poor PO 0-25% meals. LBM 05/31. Ensure Enlive TIDWM added for additional protein/kcals needs; pending MD verification prior to sending on trays. Pt has weeping edema all over per RN w/ macerated gluteal folds and weakness unable to ambulate w/ PT yesterday. Will monitor for additional protein needs and ONS tolerance. Rec: 1. Continue regular diet per MD 2. routine bowel care w/ opioid antagonist per MD 3. ensure enlive TIDWM; pend MD verification prior to sending on trays 4. IF low appetite and PO persists consider appetite stimulant per MD approval 5. wt per rx Addendum: 06/02/19 at [address] Amended: Links added.
--- NOTE | 2019-06-02 12:15 | NUR ---
transfered to tele via chair, tele monitor, and RN, all belongings in possession.
--- NOTE | 2019-06-02 12:30 | NUR ---
Patient arrived to room 3018B at this time.
[2019-06-02] MEDS: lisinopril 20mg tablet PO SCH (14:01)
--- NOTE | 2019-06-02 18:21 | NUR ---
Problems reprioritized. Patient report given, questions answered & plan of care reviewed with Soila PEDERSON.
--- NOTE | 2019-06-02 18:45 | NUR ---
Patient in room [facility] 3018. I have received report from BG Chávez and had the opportunity to ask questions and assume patient care. Addendum: 06/02/19 at 1846 by Alina Vasquez RN Amended: Links added. Addendum: 06/02/19 at 1856 by Alina Vasquez RN Patient in room [place] [id number]. I have received report from BG Conley and had the opportunity to ask questions and assume patient care.
[2019-06-02] MEDS: insulin glargine (Lantus) pen - multi-dose SQ SCH (21:00)
[2019-06-03] MEDS: ipratropium/albuterol 3ml nebule NEB SCH ×4 (02:46→20:24)
[2019-06-03 03:00] VITALS: BP 151/68
[2019-06-03 05:33] LABS: BASOPHILS % (AUTO) 0.2 % (0-1); EOSINOPHILS # (AUTO) 0.1 X10'3 (0-0.9); EOSINOPHILS % (AUTO) 0.9 % (0-6); HEMATOCRIT 29.6 % (35.0-45.0); LYMPHOCYTES # (AUTO) 1.6 X10'3 (1.1-4.8); LYMPHOCYTES % (AUTO) 11.9 % (21-51); MEAN CORPUSCULAR HEMOGLOBIN 31.1 PG (27.0-31.0); MEAN CORPUSCULAR HGB CONC 33.9 g/dL (33.0-36.5); MEAN CORPUSCULAR VOLUME 91.6 FL (78-98); MEAN PLATELET VOLUME 7.7 FL (7.4-10.4); MONOCYTES # (AUTO) 0.9 X10'3 (0-0.9); MONOCYTES % (AUTO) 6.5 % (2-12); NEUTROPHILS % (AUTO) 80.5 % (42-75); PLATELET COUNT 81 X10'3 (140-440); RED BLOOD COUNT 3.23 X10'6 (4.20-5.60); WHITE BLOOD COUNT 13.6 X10'3 (4.5-11.0)
[2019-06-03 05:45] LABS: ALANINE AMINOTRANSFERASE 184 U/L (12-78); ALBUMIN 1.8 G/DL (3.4-5.0); ALBUMIN/GLOBULIN RATIO 0.6 (1.1-1.5); ALKALINE PHOSPHATASE 137 IU/L (46-116); ANION GAP 5 (8-16); ASPARTATE AMINO TRANSFERASE 70 U/L (10-37); BILIRUBIN,TOTAL 3.5 MG/DL (0.1-1.0); BLOOD UREA NITROGEN 16 MG/DL (7-18); CALCIUM 7.8 MG/DL (8.5-10.1); CHLORIDE 110 MMOL/L (99-107); CREATININE 0.84 MG/DL (0.40-0.90); GLUCOSE 58 MG/DL (70-104); MAGNESIUM 1.8 MG/DL (1.5-2.4); PHOSPHORUS 2.9 MG/DL (2.3-4.5); POTASSIUM 4.1 MMOL/L (3.5-5.1); SODIUM 140 MMOL/L (135-145); TOTAL CARBON DIOXIDE 25.1 MMOL/L (24-32); eGFR 68 ML/MIN
[2019-06-03 06:00] VITALS: BP 141/86
--- NOTE | 2019-06-03 06:17 | NUR ---
Problems reprioritized. Patient report given, questions answered & plan of care reviewed with BG Olson. Addendum: 06/03/19 at 0618 by Alina Vasquez RN Amended: Links added.
--- NOTE | 2019-06-03 06:32 | NUR ---
Patient in room [facility] 3018. I have received report from BG Fuller and had the opportunity to ask questions and assume patient care. Pt is awake and alert, watching TV in bed. Will continue to monitor.
[2019-06-03] MEDS: methylnaltrexone br 12mg/0.6ml inj***SubQ only SQ SCH (07:10)
[2019-06-03] MEDS: lactobacillus rhamnosus 10,000 MMU CELLS/CAPSULE PO SCH ×2 (07:10→20:11)
[2019-06-03] MEDS: pantoprazole 40mg Tablet.DR PO SCH ×2 (07:10→20:11)
[2019-06-03] MEDS: lisinopril 20mg tablet PO SCH (07:11)
--- NOTE | 2019-06-03 09:27 | NUR ---
Redness noted on L upper thigh, near groin. 2 RNs checked. No pain, no tenderness, not excessively warm (same as other thigh). Will notify Dr Sosa when he rounds on the unit.
[2019-06-03 11:00] VITALS: BP 153/78
--- NOTE | 2019-06-03 13:00 | NUR ---
Dr Sosa aware of pt's L upper thigh.
[2019-06-03 15:00] VITALS: BP 160/66
[2019-06-03 18:00] VITALS: BP 150/69
--- NOTE | 2019-06-03 18:01 | NUR ---
Problems reprioritized. Patient report given, questions answered & plan of care reviewed with BG Diggs.
--- NOTE | 2019-06-03 18:15 | NUR ---
Patient in room [facility] 3018B I have received report from BG Olson and had the opportunity to ask questions and assume patient care. Pt is A&Ox4 denies CP, dizziness, pain rated 0/10. Pt is resting comfortably in bed watching tv. Will continue to monitor
[2019-06-03] MEDS: insulin glargine (Lantus) pen - multi-dose SQ SCH (21:00)
--- NOTE | 2019-06-03 21:00 | NUR ---
Patient states that she does not have diabetes. I look at patient's repot and there is no history of diabetes; only HTN. HTN diagnosis was confirmed by patient. Called Dr. Julian since Lantus was schedule for tonight at 21:00. Per DR. Julian, hold Lantus and get accucheck. Pt refused accucheck. In addition, there are no orders for accucheck.
[2019-06-03 22:00] VITALS: BP 149/61
[2019-06-04 02:00] VITALS: BP 127/65
[2019-06-04] MEDS: ipratropium/albuterol 3ml nebule NEB SCH ×4 (02:54→20:59)
[2019-06-04 06:00] VITALS: BP 123/65
--- NOTE | 2019-06-04 06:44 | NUR ---
Patient in room [facility] 3023. I have received report from BG Diggs and had the opportunity to ask questions and assume patient care. Pt sleeping. Will continue to monitor.
[2019-06-04] MEDS: lactobacillus rhamnosus 10,000 MMU CELLS/CAPSULE PO SCH ×2 (07:25→20:05)
[2019-06-04] MEDS: pantoprazole 40mg Tablet.DR PO SCH ×2 (07:25→20:05)
[2019-06-04] MEDS: lisinopril 20mg tablet PO SCH (07:26)
[2019-06-04 11:00] VITALS: BP 157/70
[2019-06-04 11:49] LABS: BASOPHILS # (AUTO) 0.1 X10'3 (0-0.2); BASOPHILS % (AUTO) 0.4 % (0-1); EOSINOPHILS # (AUTO) 0.2 X10'3 (0-0.9); HEMATOCRIT 31.2 % (35.0-45.0); HEMOGLOBIN 10.4 g/dl (12.0-16.0); LYMPHOCYTES # (AUTO) 2.1 X10'3 (1.1-4.8); LYMPHOCYTES % (AUTO) 12.5 % (21-51); MEAN CORPUSCULAR HEMOGLOBIN 30.4 PG (27.0-31.0); MEAN CORPUSCULAR HGB CONC 33.3 g/dL (33.0-36.5); MEAN CORPUSCULAR VOLUME 91.2 FL (78-98); MEAN PLATELET VOLUME 7.3 FL (7.4-10.4); MONOCYTES # (AUTO) 1.4 X10'3 (0-0.9); MONOCYTES % (AUTO) 8.6 % (2-12); NEUTROPHILS % (AUTO) 77.5 % (42-75); PLATELET COUNT 124 X10'3 (140-440); RED BLOOD COUNT 3.42 X10'6 (4.20-5.60); RED CELL DISTRIBUTION WIDTH 18.9 % (11.5-14.5); WHITE BLOOD COUNT 16.7 X10'3 (4.5-11.0)
[2019-06-04 12:03] LABS: ALANINE AMINOTRANSFERASE 159 U/L (12-78); ALBUMIN 2.1 G/DL (3.4-5.0); ALBUMIN/GLOBULIN RATIO 0.6 (1.1-1.5); ALKALINE PHOSPHATASE 151 IU/L (46-116); ANION GAP 6 (8-16); ASPARTATE AMINO TRANSFERASE 67 U/L (10-37); BILIRUBIN,TOTAL 3.5 MG/DL (0.1-1.0); BLOOD UREA NITROGEN 13 MG/DL (7-18); BUN/CREATININE RATIO 13.8 (6.6-38.0); CALCIUM 7.8 MG/DL (8.5-10.1); CHLORIDE 108 MMOL/L (99-107); CREATININE 0.94 MG/DL (0.40-0.90); GLUCOSE 102 MG/DL (70-104); MAGNESIUM 1.6 MG/DL (1.5-2.4); PHOSPHORUS 2.1 MG/DL (2.3-4.5); POTASSIUM 3.9 MMOL/L (3.5-5.1); SODIUM 139 MMOL/L (135-145); TOTAL PROTEIN 5.7 G/DL (6.4-8.2); eGFR 60 ML/MIN
[2019-06-04 15:00] VITALS: BP 138/58
[2019-06-04 18:00] VITALS: BP 156/66
--- NOTE | 2019-06-04 18:10 | NUR ---
Patient in room [facility] 3018B. I have received report from BG Olson and had the opportunity to ask questions and assume patient care. Pt is alert and oriented X4, denies n/v, CP, or dizziness. Pt had three bowels movement, the last one was incontinent with scan amount of blood. Pt c/o of stomach pain (04/20). Will bring [place] 10/325 tablet. If pain does not subside will contact dr since pt admission dx was GI and stomach pain. Will continue to monitor
--- NOTE | 2019-06-04 18:28 | NUR ---
Problems reprioritized. Patient report given, questions answered & plan of care reviewed with BG Hearn.
[2019-06-04] MEDS: HYDROcodone/acetaminophen 10/325mg tab PO PRN (18:54)
[2019-06-04 22:00] VITALS: BP 110/42
[2019-06-05] VITALS (7 sets, daily range): BP systolic 113–141; BP diastolic 52–66
[2019-06-05] MEDS: ipratropium/albuterol 3ml nebule NEB SCH ×4 (03:32→20:28)
[2019-06-05] MEDS: HYDROcodone/acetaminophen 5mg/325mg tablet PO PRN (03:38)
--- NOTE | 2019-06-05 06:05 | NUR ---
Problems reprioritized. Patient report given, questions answered & plan of care reviewed with BG Olson. Patient stable at shift change
[2019-06-05 06:06] LABS: BASOPHILS % (AUTO) 0.5 % (0-1); EOSINOPHILS # (AUTO) 0.1 X10'3 (0-0.9); EOSINOPHILS % (AUTO) 1.5 % (0-6); HEMATOCRIT 26.1 % (35.0-45.0); HEMOGLOBIN 8.6 g/dl (12.0-16.0); LYMPHOCYTES # (AUTO) 1.7 X10'3 (1.1-4.8); LYMPHOCYTES % (AUTO) 20.6 % (21-51); MEAN CORPUSCULAR HEMOGLOBIN 30.8 PG (27.0-31.0); MEAN CORPUSCULAR HGB CONC 32.8 g/dL (33.0-36.5); MEAN PLATELET VOLUME 7.9 FL (7.4-10.4); MONOCYTES # (AUTO) 0.9 X10'3 (0-0.9); MONOCYTES % (AUTO) 11.1 % (2-12); NEUTROPHILS # (AUTO) 5.6 X10'3 (1.8-7.7); NEUTROPHILS % (AUTO) 66.3 % (42-75); PLATELET COUNT 94 X10'3 (140-440); RED BLOOD COUNT 2.78 X10'6 (4.20-5.60); RED CELL DISTRIBUTION WIDTH 19.8 % (11.5-14.5); WHITE BLOOD COUNT 8.4 X10'3 (4.5-11.0)
[2019-06-05 06:28] LABS: ALANINE AMINOTRANSFERASE 130 U/L (12-78); ALBUMIN 1.8 G/DL (3.4-5.0); ALBUMIN/GLOBULIN RATIO 0.6 (1.1-1.5); ALKALINE PHOSPHATASE 123 IU/L (46-116); ANION GAP 7 (8-16); ASPARTATE AMINO TRANSFERASE 60 U/L (10-37); BILIRUBIN,TOTAL 3.1 MG/DL (0.1-1.0); BLOOD UREA NITROGEN 12 MG/DL (7-18); BUN/CREATININE RATIO 14.1 (6.6-38.0); CALCIUM 7.5 MG/DL (8.5-10.1); CHLORIDE 109 MMOL/L (99-107); CREATININE 0.85 MG/DL (0.40-0.90); GLUCOSE 80 MG/DL (70-104); MAGNESIUM 1.6 MG/DL (1.5-2.4); PHOSPHORUS 2.3 MG/DL (2.3-4.5); POTASSIUM 3.7 MMOL/L (3.5-5.1); SODIUM 139 MMOL/L (135-145); TOTAL CARBON DIOXIDE 23.2 MMOL/L (24-32); TOTAL PROTEIN 4.9 G/DL (6.4-8.2); eGFR 67 ML/MIN
--- NOTE | 2019-06-05 06:32 | NUR ---
Patient in room [facility] 3023. I have received report from BG Hearn and had the opportunity to ask questions and assume patient care. Pt is awake and alert, watching TV in bed. Will continue to monitor.
[2019-06-05 07:09] LABS: PLATELET ESTIMATE DECREASED
[2019-06-05 07:10] LABS: ANISOCYTOSIS 2+; ELLIPTOCYTES FEW; POLYCHROMASIA FEW; SCHISTOCYTES FEW
[2019-06-05] MEDS: methylnaltrexone br 12mg/0.6ml inj***SubQ only SQ SCH (08:00)
[2019-06-05] MEDS: lisinopril 20mg tablet PO SCH (08:26)
[2019-06-05] MEDS: pantoprazole 40mg Tablet.DR PO SCH ×2 (08:27→19:42)
[2019-06-05] MEDS: lactobacillus rhamnosus 10,000 MMU CELLS/CAPSULE PO SCH ×2 (08:27→19:42)
--- NOTE | 2019-06-05 12:30 | NUR ---
Reassessment: Pt PO slight improvement PO 50% avg meals but does fluctuate. BMx2 06/04 and last bloody per [employer] note. Monitoring further GIB signs per [employer] note. Will continue to monitor. Rec: 1. Continue regular diet per MD 2. ensure enlive TIDWM; pend MD verification prior to sending on trays 3. IF low appetite and PO persists consider appetite stimulant per MD approval 4. wt per rx Addendum: 06/05/19 at [address] Amended: Links added.
[2019-06-05 14:56] LABS: OCCULT BLOOD STOOL NEGATIVE (Neg)
--- NOTE | 2019-06-05 18:00 | NUR ---
Patient in room [facility] 3018. I have received report from Whitney PEDERSON and had the opportunity to ask questions and assume patient care.
--- NOTE | 2019-06-05 18:10 | NUR ---
Problems reprioritized. Patient report given, questions answered & plan of care reviewed with BG Valladares.
[2019-06-06 02:00] VITALS: BP 136/59
[2019-06-06] MEDS: ipratropium/albuterol 3ml nebule NEB SCH ×4 (03:21→20:30)
--- NOTE | 2019-06-06 05:50 | NUR ---
Patient slept all night without any complaints, excited to go home.
[2019-06-06 06:00] VITALS: BP 111/58
--- NOTE | 2019-06-06 06:37 | NUR ---
Problems reprioritized. Patient report given, questions answered & plan of care reviewed with Whitney RN.
--- NOTE | 2019-06-06 06:42 | NUR ---
Patient in room [facility] 3009. I have received report from BG Landaverde and had the opportunity to ask questions and assume patient care.
[2019-06-06] MEDS: nitroGLYCERIN 0.4mg SUBLingual tab SL PRN ×3 (07:10→07:26)
[2019-06-06] MEDS ORDERED: diltiazem 5mg/ml 5ml inj. IV ONE (07:15)
--- NOTE | 2019-06-06 07:23 | NUR ---
Pt converted into A-fib at 0547 06/06, new onset. At approximately 0640, pt c/o of chest tightness. A STAT EKG was performed at 0646, and the strip was signed by the ER doctor at 0648. No STEMI was detected. Pt was given SL nitro x 3 with some relief. Cardizem 5mg/mL IV push has been ordered.
[2019-06-06] MEDS: lactobacillus rhamnosus 10,000 MMU CELLS/CAPSULE PO SCH ×2 (07:47→20:28)
[2019-06-06] MEDS: pantoprazole 40mg Tablet.DR PO SCH ×2 (07:47→20:28)
[2019-06-06] MEDS: lisinopril 20mg tablet PO SCH ×2 (07:48→07:54)
[2019-06-06 08:00] LABS: BASOPHILS # (AUTO) 0.1 X10'3 (0-0.2); BASOPHILS % (AUTO) 0.7 % (0-1); EOSINOPHILS # (AUTO) 0.1 X10'3 (0-0.9); EOSINOPHILS % (AUTO) 1.3 % (0-6); HEMATOCRIT 25.9 % (35.0-45.0); HEMOGLOBIN 8.7 g/dl (12.0-16.0); LYMPHOCYTES # (AUTO) 1.6 X10'3 (1.1-4.8); LYMPHOCYTES % (AUTO) 17.8 % (21-51); MEAN CORPUSCULAR HEMOGLOBIN 31.2 PG (27.0-31.0); MEAN CORPUSCULAR HGB CONC 33.5 g/dL (33.0-36.5); MEAN CORPUSCULAR VOLUME 93.2 FL (78-98); MEAN PLATELET VOLUME 7.7 FL (7.4-10.4); MONOCYTES % (AUTO) 11.3 % (2-12); NEUTROPHILS # (AUTO) 6.1 X10'3 (1.8-7.7); NEUTROPHILS % (AUTO) 68.9 % (42-75); PLATELET COUNT 115 X10'3 (140-440); RED BLOOD COUNT 2.78 X10'6 (4.20-5.60); RED CELL DISTRIBUTION WIDTH 20.5 % (11.5-14.5); WHITE BLOOD COUNT 8.8 X10'3 (4.5-11.0)
[2019-06-06 08:08] LABS: ALANINE AMINOTRANSFERASE 113 U/L (12-78); ALBUMIN 1.8 G/DL (3.4-5.0); ALBUMIN/GLOBULIN RATIO 0.5 (1.1-1.5); ALKALINE PHOSPHATASE 123 IU/L (46-116); ANION GAP 8 (8-16); ASPARTATE AMINO TRANSFERASE 51 U/L (10-37); BLOOD UREA NITROGEN 8 MG/DL (7-18); BUN/CREATININE RATIO 8.8 (6.6-38.0); CALCIUM 7.5 MG/DL (8.5-10.1); CHLORIDE 110 MMOL/L (99-107); CREATININE 0.91 MG/DL (0.40-0.90); GLUCOSE 80 MG/DL (70-104); MAGNESIUM 1.5 MG/DL (1.5-2.4); PHOSPHORUS 2.1 MG/DL (2.3-4.5); POTASSIUM 3.4 MMOL/L (3.5-5.1); SODIUM 141 MMOL/L (135-145); TOTAL CARBON DIOXIDE 22.8 MMOL/L (24-32); TOTAL PROTEIN 5.1 G/DL (6.4-8.2); eGFR 62 ML/MIN
--- NOTE | 2019-06-06 09:00 | NUR ---
Pt converted back into sinus rhythm at 0806. fluctuates between SR and ST. pt states she is feeling better.
[2019-06-06 10:28] LABS: ANISOCYTOSIS 3+; PLATELET ESTIMATE DECREASED
[2019-06-06 10:29] LABS: POLYCHROMASIA 1+
[2019-06-06 11:00] VITALS: BP 122/60
[2019-06-06 15:00] VITALS: BP 130/58
[2019-06-06] MEDS: potassium bicarbonate/cit acid 25mEq tablet.effervescent PO SCH ×2 (15:30→16:00)
[2019-06-06] MEDS: furosemide 40mg/4ml inj IV SCH ×2 (17:45→20:28)
--- NOTE | 2019-06-06 18:00 | NUR ---
Patient in room [facility] 3018. I have received report from Whitney PEDERSON and had the opportunity to ask questions and assume patient care.
--- NOTE | 2019-06-06 18:17 | NUR ---
Problems reprioritized. Patient report given, questions answered & plan of care reviewed with BG Landaverde.
[2019-06-06 19:00] VITALS: BP 122/60
--- NOTE | 2019-06-06 20:30 | NUR ---
K-Lyte tablets came up late from the pharmacy. Regina was called to clarify about the first two doses being 30 min apart and the medication being late, she stated to give one dose and proceed with the medication schedule.
[2019-06-06 23:00] VITALS: BP 117/58
[2019-06-07] MEDS: ipratropium/albuterol 3ml nebule NEB SCH ×4 (03:00→21:10)
[2019-06-07 03:10] VITALS: BP 121/48
[2019-06-07 05:17] LABS: BASOPHILS % (AUTO) 0.7 % (0-1); EOSINOPHILS # (AUTO) 0.1 X10'3 (0-0.9); EOSINOPHILS % (AUTO) 1.7 % (0-6); HEMOGLOBIN 8.7 g/dl (12.0-16.0); LYMPHOCYTES # (AUTO) 1.1 X10'3 (1.1-4.8); LYMPHOCYTES % (AUTO) 17.9 % (21-51); MEAN CORPUSCULAR HEMOGLOBIN 31.2 PG (27.0-31.0); MEAN CORPUSCULAR HGB CONC 33.3 g/dL (33.0-36.5); MEAN CORPUSCULAR VOLUME 93.8 FL (78-98); MEAN PLATELET VOLUME 7.3 FL (7.4-10.4); MONOCYTES # (AUTO) 0.8 X10'3 (0-0.9); MONOCYTES % (AUTO) 12.5 % (2-12); NEUTROPHILS # (AUTO) 4.3 X10'3 (1.8-7.7); NEUTROPHILS % (AUTO) 67.2 % (42-75); PLATELET COUNT 122 X10'3 (140-440); RED BLOOD COUNT 2.78 X10'6 (4.20-5.60); RED CELL DISTRIBUTION WIDTH 21.9 % (11.5-14.5); WHITE BLOOD COUNT 6.3 X10'3 (4.5-11.0)
[2019-06-07 05:28] LABS: ALANINE AMINOTRANSFERASE 96 U/L (12-78); ALBUMIN 1.8 G/DL (3.4-5.0); ALBUMIN/GLOBULIN RATIO 0.5 (1.1-1.5); ALKALINE PHOSPHATASE 119 IU/L (46-116); ANION GAP 6 (8-16); ASPARTATE AMINO TRANSFERASE 42 U/L (10-37); BILIRUBIN,TOTAL 2.6 MG/DL (0.1-1.0); BLOOD UREA NITROGEN 7 MG/DL (7-18); CALCIUM 7.6 MG/DL (8.5-10.1); CHLORIDE 109 MMOL/L (99-107); CREATININE 0.78 MG/DL (0.40-0.90); GLUCOSE 97 MG/DL (70-104); MAGNESIUM 1.5 MG/DL (1.5-2.4); PHOSPHORUS 2.2 MG/DL (2.3-4.5); POTASSIUM 3.8 MMOL/L (3.5-5.1); SODIUM 141 MMOL/L (135-145); TOTAL CARBON DIOXIDE 25.8 MMOL/L (24-32); TOTAL PROTEIN 5.2 G/DL (6.4-8.2); eGFR 74 ML/MIN
[2019-06-07 06:30] VITALS: BP 120/48
--- NOTE | 2019-06-07 06:31 | NUR ---
Problems reprioritized. Patient report given, questions answered & plan of care reviewed with Estrellita PEDERSON.
--- NOTE | 2019-06-07 06:32 | NUR ---
Patient in room [facility] 3018B. I have received report from Saima PEDERSON and had the opportunity to ask questions and assume patient care.
[2019-06-07 06:44] LABS: ANISOCYTOSIS 3+; PLATELET ESTIMATE DECREASED
[2019-06-07] MEDS: potassium bicarbonate/cit acid 25mEq tablet.effervescent PO SCH ×4 (07:37→23:32)
[2019-06-07] MEDS: lisinopril 20mg tablet PO SCH (07:38)
[2019-06-07] MEDS: pantoprazole 40mg Tablet.DR PO SCH ×2 (07:38→19:48)
[2019-06-07] MEDS: furosemide 40mg/4ml inj IV SCH ×2 (07:38→19:48)
[2019-06-07] MEDS: methylnaltrexone br 12mg/0.6ml inj***SubQ only SQ SCH (07:38)
[2019-06-07] MEDS: lactobacillus rhamnosus 10,000 MMU CELLS/CAPSULE PO SCH ×2 (07:38→19:48)
[2019-06-07 11:00] VITALS: BP 123/44
--- NOTE | 2019-06-07 13:50 | NUR ---
PRESSURE ULCER EDUCATION: DEFINITION: A pressure ulcer is an area of skin that breaks down when you stay in one position too long. The constant pressure against the skin reduces the blood flow to that area and the affected tissue dies. CAUSES: "Being bedridden or in a wheelchair "Fragile skin "Having a chronic condition, such as diabetes or vascular disease "Inability to move certain parts of your body without assistance "Older age "Incontinence of urine or stool SYMPTOMS: "A reddened area that DOES NOT turn white when pressed on - this can be the beginning of a pressure ulcer "A blister, deep sore or a crater - these can be advanced pressure ulcers FIRST AID: "Relieve the pressure on this area "Keep the area clean and dry "Call your primary doctor if you see any of the above symptoms "DO NOT massage the area "DO NOT use a donut shaped or ring shaped pillow- these actually interfere with the blood flow and cause complications PREVENTION: "Check for pressure ulcers everyday "Change position at least every two hours to relieve pressure "Use items that help relieve pressure- pillows, sheepskin, foam padding, and powders. "Keep skin clean and dry "Eat healthy well balanced meals "Exercise daily IF YOU SEE ANY OF THESE SYMPTOMS WHILE IN THE HOSPITAL - TELL YOUR NURSE IMMEDIATELY. IF YOU SEE ANY OF THESE SYMPTOMS WHILE AT HOME OR HAVE ANY QUESTIONS OR CONCERNS ABOUT PRESSURE ULCERS - CALL YOUR PRIMARY DOCTOR IMMEDIATELY. Addendum: 06/07/19 at 1350 by Verna Poole RN Amended: Links added.
[2019-06-07 15:00] VITALS: BP 130/64
--- NOTE | 2019-06-07 18:00 | NUR ---
Patient in room [facility] 3018. I have received report from Estrellita PEDERSON and had the opportunity to ask questions and assume patient care.
--- NOTE | 2019-06-07 18:14 | NUR ---
Problems reprioritized. Patient report given, questions answered & plan of care reviewed with Saima PEDERSON.
[2019-06-07 19:00] VITALS: BP 116/48
[2019-06-07 22:00] VITALS: BP 108/53
--- NOTE | 2019-06-07 23:57 | NUR ---
Sent a message to pharmacy that the patient prefers orange flavored K-lyte. Red Santana flavored makes her nauseous.
[2019-06-08 02:09] VITALS: BP 117/46
[2019-06-08] MEDS: ipratropium/albuterol 3ml nebule NEB SCH ×3 (03:00→14:50)
[2019-06-08 04:53] LABS: EOSINOPHILS # (AUTO) 0.1 X10'3 (0-0.9); EOSINOPHILS % (AUTO) 1.5 % (0-6); HEMATOCRIT 25.7 % (35.0-45.0); HEMOGLOBIN 8.7 g/dl (12.0-16.0); LYMPHOCYTES # (AUTO) 1.3 X10'3 (1.1-4.8); MEAN CORPUSCULAR HEMOGLOBIN 32.1 PG (27.0-31.0); MEAN CORPUSCULAR HGB CONC 33.7 g/dL (33.0-36.5); MEAN CORPUSCULAR VOLUME 95.2 FL (78-98); MEAN PLATELET VOLUME 7.5 FL (7.4-10.4); MONOCYTES # (AUTO) 0.7 X10'3 (0-0.9); MONOCYTES % (AUTO) 13.3 % (2-12); NEUTROPHILS % (AUTO) 59.2 % (42-75); PLATELET COUNT 118 X10'3 (140-440); RED CELL DISTRIBUTION WIDTH 22.8 % (11.5-14.5)
[2019-06-08 05:31] LABS: ALANINE AMINOTRANSFERASE 86 U/L (12-78); ALBUMIN 1.9 G/DL (3.4-5.0); ALBUMIN/GLOBULIN RATIO 0.5 (1.1-1.5); ALKALINE PHOSPHATASE 117 IU/L (46-116); ANION GAP 6 (8-16); ASPARTATE AMINO TRANSFERASE 40 U/L (10-37); BILIRUBIN,TOTAL 2.4 MG/DL (0.1-1.0); BLOOD UREA NITROGEN 7 MG/DL (7-18); BUN/CREATININE RATIO 8.1 (6.6-38.0); CALCIUM 7.5 MG/DL (8.5-10.1); CHLORIDE 108 MMOL/L (99-107); CREATININE 0.86 MG/DL (0.40-0.90); GLUCOSE 83 MG/DL (70-104); MAGNESIUM 1.5 MG/DL (1.5-2.4); PHOSPHORUS 2.4 MG/DL (2.3-4.5); POTASSIUM 3.6 MMOL/L (3.5-5.1); SODIUM 142 MMOL/L (135-145); TOTAL CARBON DIOXIDE 27.8 MMOL/L (24-32); TOTAL PROTEIN 5.5 G/DL (6.4-8.2); eGFR 66 ML/MIN
--- NOTE | 2019-06-08 06:12 | NUR ---
Problems reprioritized. Patient report given, questions answered & plan of care reviewed with Estrellita PEDERSON.
[2019-06-08 06:30] VITALS: BP 131/57
--- NOTE | 2019-06-08 06:30 | NUR ---
Patient in room [facility] 3018B. I have received report from Saima PEDERSON and had the opportunity to ask questions and assume patient care.
[2019-06-08] MEDS: potassium bicarbonate/cit acid 25mEq tablet.effervescent PO SCH ×2 (07:11→16:47)
[2019-06-08] MEDS: lactobacillus rhamnosus 10,000 MMU CELLS/CAPSULE PO SCH (07:11)
[2019-06-08] MEDS: pantoprazole 40mg Tablet.DR PO SCH (07:12)
[2019-06-08] MEDS: furosemide 40mg/4ml inj IV SCH (07:12)
[2019-06-08] MEDS: lisinopril 20mg tablet PO SCH (07:12)
[2019-06-08] MEDS: methylnaltrexone br 12mg/0.6ml inj***SubQ only SQ SCH (07:12)
[2019-06-08 10:27] LABS: ANISOCYTOSIS 3+; PLATELET ESTIMATE DECREASED
[2019-06-08 11:00] VITALS: BP 111/49
--- NOTE | 2019-06-08 12:57 | NUR ---
Reassessment: Pt continues to average 50% PO intake likely not meeting nutrient needs. ONS still pending MD verification. Pt seen at bedside states she was getting dental work done prior to admit so it hurts when she eats however does not want a change in texture at this time. Pt reports working with chief dietitian for food preferences and states she would like ranch dressing with salads, d/w dietary. Pt provided with RD contact and encouraged to reach out for anything regarding meal trays. Pt reports possible discharge soon. [facility] 06/08. Will continue to follow. Rec: 1. Continue regular diet per MD 2. ensure enlive TIDWM; pend MD verification prior to sending on trays 3. IF low appetite and PO persists consider appetite stimulant per MD approval 4. wt per rx Addendum: 06/08/19 at [address] Amended: Links added.
[2019-06-08 15:00] VITALS: BP 125/59
[2019-06-08] MEDS ORDERED: PANT40TA4 PO (16:39)
[2019-06-08] MEDS ORDERED: FURO40TA4 PO (16:39)
[2019-06-08] MEDS ORDERED: POTA25TA35 PO (16:39)
--- NOTE | 2019-06-08 17:21 | NUR ---
New prespcriptions called to [facility] pharmacy in [place] per pt request.
--- NOTE | 2019-06-08 18:20 | NUR ---
Per MD, patient stable for discharge home. Discharge packet completed and provided, and all questions answered. IV removed with catheter intact and tele monitor discontinued. New prescriptions called into patient's pharmacy of choice. All belongings sent with patient. Patient escorted from hospital via wheelchair accompanied by staff and spouse, and driven home in private vehicle.
== END 2019-06-08 18:33 | disposition home or self-care (01) | DRG 356 ==
LOC: ER 03:52 → PCU 3S 08:36 → CICU 2S 13:17 → ICU 2S 05-30 11:30 → PCU 3S 06-02 12:30
PROVIDERS: ADMIT Internal Medicine; ATTEND Internal Medicine Critical Care Medicine
PROC: 0DJ08ZZ Inspection of Upper Intestinal Tract, Via Natural or Artificial Opening Endoscopic (ICD-10-PCS; principal; 2019-05-23)
PROC: 3E0G8GC Introduction of Other Therapeutic Substance into Upper GI, Via Natural or Artificial Opening Endoscopic (ICD-10-PCS; 2019-05-23)
PROC: 5A1955Z Respiratory Ventilation, Greater than 96 Consecutive Hours (ICD-10-PCS; 2019-05-23)
PROC: 0BH17EZ Insertion of Endotracheal Airway into Trachea, Via Natural or Artificial Opening (ICD-10-PCS; 2019-05-23)
PROC: 04L13DZ Occlusion of Celiac Artery with Intraluminal Device, Percutaneous Approach (ICD-10-PCS; 2019-05-23)
PROC: 30233N1 Transfusion of Nonautologous Red Blood Cells into Peripheral Vein, Percutaneous Approach (ICD-10-PCS; 2019-05-23)
PROC: 30233K1 Transfusion of Nonautologous Frozen Plasma into Peripheral Vein, Percutaneous Approach (ICD-10-PCS; 2019-05-23)
PROC: B4101ZZ Fluoroscopy of Abdominal Aorta using Low Osmolar Contrast (ICD-10-PCS; 2019-05-23)
PROC: 30233M1 Transfusion of Nonautologous Plasma Cryoprecipitate into Peripheral Vein, Percutaneous Approach (ICD-10-PCS; 2019-05-24)
PROC: 30233R1 Transfusion of Nonautologous Platelets into Peripheral Vein, Percutaneous Approach (ICD-10-PCS; 2019-05-24)
PROC: 30233N1 Transfusion of Nonautologous Red Blood Cells into Peripheral Vein, Percutaneous Approach (ICD-10-PCS; 2019-05-25)
DX: K26.4 Chronic or unspecified duodenal ulcer with hemorrhage (principal); K72.00 Acute and subacute hepatic failure without coma; J96.01 Acute respiratory failure with hypoxia; E87.2 Acidosis; N17.9 Acute kidney failure, unspecified; D64.9 Anemia, unspecified; I48.0 Paroxysmal atrial fibrillation; I49.8 Other specified cardiac arrhythmias; I12.9 Hypertensive chronic kidney disease with stage 1 through stage 4 chronic kidney disease, or unspecified chronic kidney disease; N18.3 Chronic kidney disease, stage 3 (moderate); K21.9 Gastro-esophageal reflux disease without esophagitis; G89.29 Other chronic pain; I85.01 Esophageal varices with bleeding; K74.60 Unspecified cirrhosis of liver; K64.9 Unspecified hemorrhoids; F17.200 Nicotine dependence, unspecified, uncomplicated; Z96.641 Presence of right artificial hip joint; F41.9 Anxiety disorder, unspecified; I95.9 Hypotension, unspecified; R15.9 Full incontinence of feces; Z98.51 Tubal ligation status; Z79.899 Other long term (current) drug therapy
CPT/HCPCS: 36246; 36415; 36600; 37244; 43236; 43255; 71045; 74176; 75726; 75736; 80053; 80069; 80202; 81001; 81025; 82140; 82150; 82272; 82330; 82550; 82570; 82803; 82810; 82948; 83036; 83605; 83690; 83735; 84100; 84145; 84300; 84439; 84443; 84484; 85018; 85025; 85027; 85379; 85384; 85610; 85730; 86706; 86803; 86885; 86900; 86901; 86920; 87040; 87070; 87081; 92508; 92616; 93005; 93931; 93971; 94002; 94003; 94640; 94667; 94668; 94760; 96365; 97110; 97116; 97161; 97530; 99152; 99285; C1769; C1894; C9113; G0378; J0171; J0360; J1410; J1644; J1720; J1815; J1940; J2060; J2212; J2250; J2270; J2354; J2405; J2543; J2597; J3010; J3370; J3430; J3475; J3480; J3490; J7040; J7050; P9012; P9016; P9035; P9047; P9059; Q9967

== ENCOUNTER 2019-08-11 09:23 | Outpatient (CLI) | payer MEDICARE ==
[2019-08-11] VITALS (18 sets, daily range): BP systolic 116–152; BP diastolic 56–87
[~2019-08-11 09:23] MED LIST: FURO40TA4 PO; LISI40TA4 PO; PANT40TA4 PO; POTA25TA35 PO
== END 2019-08-11 23:59 | disposition home or self-care (01) ==
LOC: CARD DIAG 09:23
PROVIDERS: ATTEND Internal Medicine Interventional Cardiology
DX: I95.1 Orthostatic hypotension (principal)
CPT/HCPCS: 93660

== ENCOUNTER 2020-03-16 17:45 | Emergency (ER) | payer MEDICARE ==
[~2020-03-16] VITALS: Ht 162.6 cm; Wt 76.8 kg
[2020-03-16 18:37] LABS: EOSINOPHILS # (AUTO) 0.2 X10'3 (0-0.9); HEMOGLOBIN 14.5 g/dl (12.0-16.0); LYMPHOCYTES # (AUTO) 1.5 X10'3 (1.1-4.8); LYMPHOCYTES % (AUTO) 34.5 % (21-51); MEAN CORPUSCULAR HEMOGLOBIN 33.4 PG (27.0-31.0); MEAN CORPUSCULAR HGB CONC 34.6 g/dL (33.0-36.5); MEAN CORPUSCULAR VOLUME 96.5 FL (78-98); MEAN PLATELET VOLUME 7.3 FL (7.4-10.4); MONOCYTES # (AUTO) 0.5 X10'3 (0-0.9); MONOCYTES % (AUTO) 10.4 % (2-12); NEUTROPHILS # (AUTO) 2.1 X10'3 (1.8-7.7); NEUTROPHILS % (AUTO) 49.1 % (42-75); PLATELET COUNT 104 X10'3 (140-440); RED BLOOD COUNT 4.35 X10'6 (4.20-5.60); RED CELL DISTRIBUTION WIDTH 14.1 % (11.5-14.5); WHITE BLOOD COUNT 4.4 X10'3 (4.5-11.0)
[2020-03-16 18:41] LABS: URINE HCG NEGATIVE (NEG)
[2020-03-16 18:47] LABS: ALANINE AMINOTRANSFERASE 29 U/L (12-78); ALBUMIN 3.5 G/DL (3.4-5.0); ALBUMIN/GLOBULIN RATIO 0.9 (1.1-1.5); ALKALINE PHOSPHATASE 124 IU/L (46-116); ANION GAP 7 (8-16); ASPARTATE AMINO TRANSFERASE 31 U/L (10-37); BILIRUBIN,TOTAL 0.6 MG/DL (0.1-1.0); BLOOD UREA NITROGEN 14 MG/DL (7-18); BUN/CREATININE RATIO 17.9 (6.6-38.0); CALCIUM 9.3 MG/DL (8.5-10.1); CHLORIDE 105 MMOL/L (99-107); CREATININE 0.78 MG/DL (0.40-0.90); GLUCOSE 105 MG/DL (70-104); LIPASE 195 U/L (73-393); POTASSIUM 3.8 MMOL/L (3.5-5.1); SODIUM 139 MMOL/L (135-145); TOTAL CARBON DIOXIDE 27.5 MMOL/L (24-32); TOTAL PROTEIN 7.6 G/DL (6.4-8.2); eGFR 74 ML/MIN
[2020-03-16 18:50] LABS: CLARITY,URINE CLEAR (Clear); COLOR,URINE YELLOW (Yellow); GLUCOSE, URINE NEGATIVE (Neg); KETONES,URINE NEGATIVE (Neg); LEUKOCYTE ESTERASE ,URINE TRACE (Neg); NITRITES, URINE NEGATIVE (Neg); OCCULT BLOOD,URINE NEGATIVE (Neg); PROTEIN,URINE NEGATIVE (Neg); UROBILINOGEN,URINE 0.2 E.U/dL (0.2-1.0)
[2020-03-16 19:11] LABS: UA COLLECTION TYPE CLN CATCH MIDSTREAM
[2020-03-16 19:13] LABS: BACTERIA,URINE NONE SEEN /HPF (Neg); RBC,URINE NONE SEEN /HPF (0-2); SQUAMOUS EPITHELIAL CELL,UR FEW /LPF (FEW); WBC,URINE 0-4 /HPF (0-4)
[2020-03-16] MEDS ORDERED: LACT1CAP75 PO (19:56)
[2020-03-16] MEDS ORDERED: CEPH500C5 PO (19:56)
[2020-03-16 20:07] VITALS: BP 139/62
== END 2020-03-16 20:09 | disposition home or self-care (01) ==
LOC: ER 17:46
DX: N39.0 Urinary tract infection, site not specified (principal); R11.0 Nausea; R10.10 Upper abdominal pain, unspecified; M54.9 Dorsalgia, unspecified; R39.15 Urgency of urination; I10 Essential (primary) hypertension; K21.9 Gastro-esophageal reflux disease without esophagitis; F41.9 Anxiety disorder, unspecified; Z98.890 Other specified postprocedural states; Z79.899 Other long term (current) drug therapy
CPT/HCPCS: 36415; 80053; 81001; 81025; 83690; 85025; 86885; 86900; 86901; 87077; 87088; 87186; 99284